=== PATIENT | male | born 1935 | race Asian ===

== ENCOUNTER 2022-01-19 04:00 | Emergency (ER) | payer MEDICARE, MEDICAID ==
[~2022-01-19] VITALS: Ht 172.7 cm; Wt 63.0 kg
--- NOTE | 2022-01-19 04:00 | NUR ---
PT BENY ALS. TAKEN TO BED 8
[2022-01-19 04:03] VITALS: BP 130/73
--- NOTE | 2022-01-19 04:03 | NUR ---
86 Y/O [place] [facility] [place]. PT HAD BEEN SATURATING AT 96-97% AND DROPPED TO 92 %. PT WAS DISCHARGED FROM [facility] YESTERDAY WITH DX OF PNEUMONIA. PT WITH T-TUBE AND WAS SUCTIONED, VENUE ATTENDANT, OF BLOODY SPUTUM. PT NOW WITH GURGLING RESPIRATIONS. PMH : STAGE III KIDNEY DISEASE, SPINAL STENOSIS, HTN
--- NOTE | 2022-01-19 04:03 | NUR ---
Dr. Dangelo examining patient.
--- NOTE | 2022-01-19 04:05 | NUR ---
Respiratory Therapist at bedside for respiratory intervention
[2022-01-19] MEDS ORDERED: NACL 0.9% 1,000 ML IV ONE ×2 (04:15→07:30)
--- NOTE | 2022-01-19 04:15 | NUR ---
X-Ray at bedside.
[2022-01-19] MEDS ORDERED: ARGI4.5P3 PO (04:26)
[2022-01-19] MEDS ORDERED: LORA10TA19 PO (04:26)
[2022-01-19] MEDS ORDERED: METO25TA PO (04:26)
[2022-01-19] MEDS ORDERED: INSU100S5 (04:26)
[2022-01-19] MEDS ORDERED: DOCU250S72 PO (04:26)
[2022-01-19] MEDS ORDERED: BANA1POW PO (04:26)
[2022-01-19] MEDS ORDERED: AZIT250T4 PO (04:26)
[2022-01-19] MEDS ORDERED: INSU100S22 SUBQ (04:26)
[2022-01-19] MEDS ORDERED: FERR-212 PO (04:26)
[2022-01-19] MEDS ORDERED: ACET-5629 PO (04:26)
--- NOTE | 2022-01-19 05:38 | NUR ---
LOLA AND LABS TAKEN TO LAB. Addendum: 01/19/22 at 0539 by ZOEY LOLA AND LABS TAKEN TO LABManav SILVA FROM LAB STATED TO LEAVE IT THERE.
--- NOTE | 2022-01-19 05:40 | NUR ---
RT AT BEDSIDE.
[2022-01-19] MEDS ORDERED: fentaNYL citrate 0.05 MG/ML VIAL IVP ONE ×2 (05:50→08:00)
[2022-01-19 06:00] LABS: BASOPHILS % (AUTO) 0.3 % (0.0-2.0); EOSINOPHILS # (AUTO) 0.3 K/uL (0-0.4); EOSINOPHILS % (AUTO) 2.4 % (0.0-4.0); HEMATOCRIT 28.7 % (36-52); HEMOGLOBIN 9.1 g/dL (12.0-18.0); LYMPHOCYTES # (AUTO) 1.3 K/uL (2.0-11.5); LYMPHOCYTES % (AUTO) 10.1 % (20.5-51.1); MEAN CORPUSCULAR HEMOGLOBIN 27 pg (27-31); MEAN CORPUSCULAR HGB CONC 32 g/dL (33-37); MEAN CORPUSCULAR VOLUME 86.9 fL (80-94); MONOCYTES # (AUTO) 1.2 K/uL (0.8-1.0); MONOCYTES % (AUTO) 9.6 % (1.7-9.3); NEUTROPHILS # (AUTO) 9.7 K/uL (1.8-7.7); NEUTROPHILS % (AUTO) 77.6 % (42.2-75.2); PLATELET COUNT (AUTO) 408 K/uL (140-450); RED BLOOD CELL COUNT(AUTO) 3.31 MIL/uL (4.20-6.10); RED CELL DISTRIBUTION WIDTH 18.5 % (11.6-13.7); WHITE BLOOD COUNT (AUTO) 12.5 K/uL (4.8-10.8)
[2022-01-19] MEDS ORDERED: VANCOMYCIN 1,000 MG in DEXTROSE 5% 250 ML IV ONE (06:10)
[2022-01-19] MEDS ORDERED: PIPERACILLIN/TAZOBACTAM 3.375 GM in DEXTROSE 5% 50 ML IV ONE (06:10)
--- NOTE | 2022-01-19 06:13 | NUR ---
FAY EMPTIED 100 ML. CLAMPED TO GET CLEAN URINE SAMPLE
[2022-01-19 06:18] LABS: ALBUMIN 1.8 g/dL (3.4-5.0); ASPARTATE AMINOTRANSFERASE 39 U/L (15-37); CARBON DIOXIDE 31.9 mmol/L (21-32); CHLORIDE 99 mmol/L (98-107); CREATININE 0.8 mg/dL (0.6-1.3); GLUCOSE 261 mg/dL (74-106); LIPASE 413 U/L (73-393); POTASSIUM 4.9 mmol/L (3.5-5.1); SODIUM SERUM 136 mmol/L (136-145); TOTAL BILIRUBIN 0.3 mg/dL (0.0-1.0); UREA NITROGEN, BLOOD 42 mg/dL (7-18)
[2022-01-19] MEDS ORDERED: PIPERACILLIN/TAZOBACTAM 3.375 GM VIAL IV ONE (06:19)
[2022-01-19] MEDS ORDERED: VANCOMYCIN 1,000 MG VIAL ONE (06:20)
--- NOTE | 2022-01-19 06:28 | NUR ---
PATIENT REFUSED ABG AT THIS TIME. REFUSED SUCTIONING. PATIENT COMBATIVE AND PULLING ON SUCTIONING CATHETER WHEN ATTEMPTING TO SUCTION. RN AND PHYSICIAN AWARE. WILL CONTINUE TO MONITOR.
--- NOTE | 2022-01-19 06:30 | NUR ---
FAY NOT REPLACED . DUE TO NO FOLEYS AVAILABLE
--- NOTE | 2022-01-19 06:38 | NUR ---
RT AT BEDSIDE
[2022-01-19 07:04] LABS: APPEARANCE,URINE HAZY (CLEAR); BILIRUBIN,URINE NEGATIVE (NEGATIVE); BLOOD, URINE 2+ (NEGATIVE); COLOR,URINE YELLOW (YELLOW); LEUKOCYTE ESTERASE ,URINE 1+ (NEGATIVE); NITRITE, URINE NEGATIVE (NEGATIVE); PH,URINE 5.5 (5.0-9.0); UGLUCOSE NEGATIVE (NEGATIVE)
[2022-01-19 07:19] LABS: CALCIUM OXALATE CRYSTALS,UR None Seen /HPF (None Seen); OTHER CRYSTALS,URINE None Seen /HPF (None Seen); TRICHOMONAS,URINE None Seen /HPF (None Seen); TRIPLE PHOSPHATE CRYSTAL,UR None Seen /HPF (None Seen); URIC ACID CRYSTALS,URINE None Seen /HPF (None Seen); WBC,URINE 16-25 (MOD) /HPF (0-5); YEAST,URINE Few /HPF (None Seen)
[2022-01-19 07:21] LABS: COARSE GRANULAR CASTS,URINE None Seen /LPF (None Seen); FINE GRANULAR CASTS,URINE 0-10 /LPF (None Seen); HYALINE CASTS, URINE None Seen /LPF (None Seen); OTHER CASTS, URINE None Seen /LPF (None Seen); RED BLOOD CELL CASTS,URINE None Seen /LPF (None Seen); URINE AMORPHOUS URATE 1+ /HPF (None Seen); WAXY CASTS,URINE None Seen /LPF (None Seen)
--- NOTE | 2022-01-19 07:53 | NUR ---
rt at bedside. pt not tolerating suction, oxygen saturation between 70%-88%. pt not allowing us to suction his mouth, no secretions with suction through trach. audible garling in mouth, pt tightly closing teeth and moving head, unable to suction at this time.
--- NOTE | 2022-01-19 10:06 | NUR ---
[facility] er transfer called. report given to karin clancy at this time. transportation operations manager called states they are on their way to [facility] pt.
--- NOTE | 2022-01-19 11:06 | NUR ---
transfer at bedside, art rn received report on pt. requesting rt assess pt before transfer to [place].
--- NOTE | 2022-01-19 11:07 | NUR ---
Patient to be transferred to [facility]. Is being transferred due to severe sepsis, pneumonia. Receiving facility has accepting physician and available space. ER physician has signed transfer form. Patient or responsible green party has agreed to transfer and signed form. Patient belongings inventoried and will be sent with patient. Copy of nursing notes, lab reports, EKG, Physicians Orders and X-rays to be sent with patient. Report called to karin clancy at receiving facility. [facility] has been called for transfer. ETA is 1030.
[2022-01-19 11:08] VITALS: BP 116/55
--- NOTE | 2022-01-19 11:13 | NUR ---
art rn states he is unable to transfer pt due to lack of rt for transport, states they will have to come back with rt to transfer pt.
--- NOTE | 2022-01-19 12:39 | NUR ---
transport here with rn and rt
== END 2022-01-19 12:40 | disposition short-term general hospital (02) ==
LOC: MED 04:00
DX: A41.9 Sepsis, unspecified organism (principal); Z20.822 Contact with and (suspected) exposure to COVID-19; J95.851 Ventilator associated pneumonia; J96.01 Acute respiratory failure with hypoxia; E43 Unspecified severe protein-calorie malnutrition; Z79.2 Long term (current) use of antibiotics; Z79.899 Other long term (current) drug therapy
CPT/HCPCS: 36415; 71045; 80053; 81001; 83605; 83690; 83880; 84484; 85025; 87040; 87086; 87426; 93005; 96361; 96365; 96366; 96368; 96375; 99291; J2543; J3010; J3370; J7030; Q0092; 99285

== ENCOUNTER 2022-03-01 23:55 | Inpatient (IN) | payer MEDICARE, MEDICAID ==
[~2022-03-01] VITALS: Ht 175.3 cm; Wt 81.6 kg
[~2022-03-01 23:55] MED LIST: ACET-5629 PO; ARGI4.5P3 PO; AZIT250T4 PO; BANA1POW PO; DOCU250S72 PO; FERR-212 PO; INSU100S22 SUBQ; INSU100S5; LORA10TA19 PO; METO25TA PO
[2022-03-01 23:57] VITALS: BP 85/43
--- NOTE | 2022-03-01 23:57 | NUR ---
PT BIBA ALS. TAKEN TO BED 10. RT AT BEDSIDE
[2022-03-02] VITALS (8 sets, daily range): BP systolic 80–131; BP diastolic 35–65
--- NOTE | 2022-03-02 | NUR ---
BIBA FROM [facility] WITH C/O OF ABNORMAL LAB VALUES X 1 DAY, HGB 5.9, HCT 19.4; PT NONVERBAL; TRACH; PICC IN RUIZ; GTUBE; PT SACRAL REGION & R HEEL; CAME IN WITH FAY; PER [facility]; PATIENT POSITIONED FOR COMFORT; HOB ELEVATED; BEDRAILS UP X2; BED DOWN. ER MD MADE AWARE OF PT STATUS. MED HX: HTN, CHRONIC RESPIRATORY FAILURE, DM2, HYPERLIPIDEMIA, GERD, AORTIC ANEURYSM, CKD. NKDA
--- NOTE | 2022-03-02 00:01 | NUR ---
Dr. Fulton examining patient.
--- NOTE | 2022-03-02 00:35 | NUR ---
PALACED PT ON COOL AEROSOL SETUP 12 LPM, 60% FIO2, CURRENTLY SATING 97%, NO SIGNS OF RESPIRATORY DISTRESS NOTED AT THIS TIME, ANTERIOR AUSCULTATION REVEALED COARSE CRACKLES THROUGHOUT ALL LUNG LOOMIS, DEEP TRACHEAL SUCTION FOR MODERATE PALE/YELLOW THICK SECRETIONS. WILL CONTINUE TO MOITOR.
[2022-03-02 00:58] LABS: ALBUMIN 1.4 g/dL (3.4-5.0); ANION GAP 11.1 (8-16); ASPARTATE AMINOTRANSFERASE 29 U/L (15-37); CARBON DIOXIDE 29.9 mmol/L (21-32); CHLORIDE 111 mmol/L (98-107); CREATININE 1.5 mg/dL (0.6-1.3); GLUCOSE 242 mg/dL (74-106); SODIUM SERUM 147 mmol/L (136-145); TOTAL BILIRUBIN 0.5 mg/dL (0.0-1.0); UREA NITROGEN, BLOOD 54 mg/dL (7-18)
[2022-03-02 01:25] LABS: BASOPHILS # (AUTO) 0.2 K/uL (0.00-0.22); BASOPHILS % (AUTO) 1.9 % (0.0-2.0); EOSINOPHILS # (AUTO) 0.4 K/uL (0-0.4); EOSINOPHILS % (AUTO) 3.2 % (0.0-4.0); LYMPHOCYTES # (AUTO) 2.6 K/uL (2.0-11.5); LYMPHOCYTES % (AUTO) 19.7 % (20.5-51.1); MEAN CORPUSCULAR HEMOGLOBIN 26 pg (27-31); MEAN CORPUSCULAR HGB CONC 30 g/dL (33-37); MEAN CORPUSCULAR VOLUME 87.8 fL (80-94); MONOCYTES # (AUTO) 0.8 K/uL (0.8-1.0); MONOCYTES % (AUTO) 6.4 % (1.7-9.3); NEUTROPHILS # (AUTO) 8.9 K/uL (1.8-7.7); NEUTROPHILS % (AUTO) 68.8 % (42.2-75.2); PLATELET COUNT (AUTO) 416 K/uL (140-450); RED BLOOD CELL COUNT(AUTO) 2.07 MIL/uL (4.20-6.10); RED CELL DISTRIBUTION WIDTH 19.8 % (11.6-13.7); WHITE BLOOD COUNT (AUTO) 12.9 K/uL (4.8-10.8)
[2022-03-02 01:34] LABS: HEMATOCRIT 18.2 % (36-52); HEMOGLOBIN 5.4 g/dL (12.0-18.0)
[2022-03-02] MEDS ORDERED: BACITRACIN OINT 500 UNITS/GM PKT TP ONE ×2 (01:34→01:35)
[2022-03-02] MEDS ORDERED: NACL 0.9% 1,000 ML IV ONE (01:35)
[2022-03-02] MEDS ORDERED: VANCOMYCIN 1GM/DEXT 5% PREMIX 200 ML IV ONE (01:45)
[2022-03-02] MEDS ORDERED: VANCOMYCIN PER PHARMACY MC PRN ×2 (01:45→12:25)
--- NOTE | 2022-03-02 01:48 | NUR ---
X-Ray at bedside.
[2022-03-02] MEDS ORDERED: ACETAMINOPHEN 650 MG/20.3 ML UDC PO ONE (02:05)
--- NOTE | 2022-03-02 02:10 | NUR ---
provided pericare for pt. pt had loose stool. diaper changed, sheets changed, and place lisa pads. pt tolerated well. safety measures are in place, pt placed on monitor, and will continue to monitor patient.
[2022-03-02] MEDS ORDERED: cefTRIAXone 1,000 MG VIAL ONE (02:14)
[2022-03-02 02:30] LABS: PROTHROMBIN TIME 11.5 secs (10.8-13.4)
[2022-03-02] MEDS ORDERED: ASPI-1822 GT (02:39)
[2022-03-02] MEDS ORDERED: LOV40I SUBQ (02:39)
[2022-03-02] MEDS ORDERED: MAGN400S60 GT (02:39)
[2022-03-02] MEDS ORDERED: LORA10TA19 GT (02:39)
[2022-03-02] MEDS ORDERED: SLIDE SUBQ (02:39)
[2022-03-02] MEDS ORDERED: DOCU-299 GT (02:39)
[2022-03-02] MEDS ORDERED: BISA-213 RC (02:39)
[2022-03-02] MEDS ORDERED: LORA-476 GT (02:39)
--- NOTE | 2022-03-02 02:46 | NUR ---
Benedict walton in [facility] - 03/02/22 at 0250 by [email or web address] PATIENT TAKEN TO CT
--- NOTE | 2022-03-02 02:58 | NUR ---
SPOKE TO PATIENTS SON DIANN. DIANN GAVE PERMISSION TO GIVE BLOOD TRANSFUSION
[2022-03-02] MEDS ORDERED: VANCOMYCIN 1,000 MG VIAL ONE (03:02)
[2022-03-02] MEDS ORDERED: SIMV-33 GT (03:06)
[2022-03-02] MEDS ORDERED: IPRA12.9 IH (03:06)
[2022-03-02] MEDS ORDERED: ALBU-118 INH (03:06)
[2022-03-02] MEDS ORDERED: ZINC220T3 GT (03:06)
[2022-03-02] MEDS ORDERED: CHOL200072 GT (03:06)
[2022-03-02] MEDS ORDERED: ACET-10509 GT (03:06)
[2022-03-02] MEDS ORDERED: FAMO-90 GT (03:06)
[2022-03-02] MEDS ORDERED: ALBU6.7H IH (03:06)
[2022-03-02] MEDS ORDERED: [UNRECOGNIZED DRUG - CODE] GT (03:10)
[2022-03-02] MEDS ORDERED: DIPH25TA53 GT (03:12)
[2022-03-02] MEDS ORDERED: POTASSIUM CHLORIDE 40 MEQ, LIDOCAINE MPF 1% 25 MG in NACL 0.9% 250 ML IV PRN (03:20)
[2022-03-02] MEDS: DEXT 5% / NACL 0.45% 1,000 ML IV SCH ×2 (03:20→15:34)
[2022-03-02] MEDS ORDERED: ONDANSETRON 4 MG/2 ML VIAL IM/IVP PRN (03:20)
[2022-03-02] MEDS ORDERED: SODIUM PHOS / POTASSIUM PHOS 1 PKT PDR PO PRN (03:20)
[2022-03-02] MEDS ORDERED: ONDANSETRON 4 MG/2 ML VIAL IVP PRN (03:20)
[2022-03-02] MEDS ORDERED: MAG SULF 2000 MG/WATER PREMIX 50 ML IV PRN (03:20)
[2022-03-02] MEDS ORDERED: DOCUSATE SODIUM 100 MG GELCAP PO PRN (03:20)
[2022-03-02] MEDS ORDERED: HYDROcodone/APAP 5/325 MG 1 TAB TAB PO PRN (03:20)
--- NOTE | 2022-03-02 03:24 | NUR ---
PT TAKEN TO CT
[2022-03-02 03:35] LABS: MAGNESIUM 2.4 mg/dL (1.8-2.4); PHOSPHORUS 3.1 mg/dL (2.5-4.9)
--- NOTE | 2022-03-02 03:35 | NUR ---
PT RETURN FROM CT
--- NOTE | 2022-03-02 04:12 | NUR ---
Patient will be admitted to care of DR WARD. Admited to TELEMETRY. Will go to room 108B. Belongings list completed. Report to SEAN HYDE.
--- NOTE | 2022-03-02 07:10 | NUR ---
RECEIVED REPORT FROM RIBBON WEAVER NURSE FOR CONTINUITY OF CARE. PT ASLEEP IN BED. ON 12L TRACH TO TPIECE/TBAR SATING AT 100% BREATHING SYMMETRICAL. FLACC O. WITH PICC LINE 1 LUMEN ON RUIZ RUNNING D51/2NS AT 75CC/HR. FAY CATHETER INTACT AND PATENT DRAINING YELLOW URINE. NOTED WITH PEG TUBE ON RUQ ABDOMEN. PER REPORT PT HAD FEVER AROUND 5AM AND HAS EPISODE OF TRYING TO PULL OUT T PIECE. ALL SAFETY MEASURES IN PLACE.
[2022-03-02] MEDS: ACETAMINOPHEN 325 MG TAB PO PRN (07:57)
--- NOTE | 2022-03-02 07:57 | NUR ---
PT'S HEMOGLOBIN LEVEL IS 5.4, CHECKED PT'S TEMP AXILLARY NOTED 102.6, PRN TYLENOL GIVEN VIA PEG TUBE. ICE PACKS ALSO APPLIED. UNABLE TO TRANSFUSE BLOOD DUE TO ELEVATED TEMP. WILL CONTINUE TO MONITOR.
--- NOTE | 2022-03-02 08:12 | NUR ---
PATIENT HAS BEEN SCREENED AND CATEGORIZED HIGH NUTRITION RISK. PATIENT WILL BE SEEN WITHIN 1-2 DAYS OF ADMISSION. RECEIVED CONSULT FOR JIMY Marinelli OR LEO BOYER RD
[2022-03-02] MEDS: PANTOPRAZOLE 40 MG INJ VIAL IVP SCH ×2 (08:16→21:43)
[2022-03-02] MEDS: MULTIVITAMIN 1 TAB GT SCH (08:17)
[2022-03-02] MEDS: METOPROLOL 25 MG TAB PO SCH ×2 (08:17→21:00)
--- NOTE | 2022-03-02 09:03 | NUR ---
RE-CHECKED PT'S TEMP WENT DOWN TO 101.3 AXILLARY. STILL UNABLE TO TRANSFUSE BLOOD AT THIS TIME DUE TO FEVER. LEFT MESSAGE TO DR WARD
--- NOTE | 2022-03-02 09:23 | NUR ---
RECEIVED ORDER FROM DR WARD TO GIVE TORADOL 30MG IV X1.
[2022-03-02] MEDS ORDERED: KETOROLAC 30 MG/ML VIAL IVP SCH (10:00)
[2022-03-02] MEDS ORDERED: DEXTROSE 50% 50 ML SYR IVP PRN (10:45)
[2022-03-02 10:48] LABS: APPEARANCE,URINE CLEAR (CLEAR); BILIRUBIN,URINE NEGATIVE (NEGATIVE); BLOOD, URINE 1+ (NEGATIVE); COLOR,URINE YELLOW (YELLOW); LEUKOCYTE ESTERASE ,URINE TRACE (NEGATIVE); NITRITE, URINE NEGATIVE (NEGATIVE); UGLUCOSE NEGATIVE (NEGATIVE)
--- NOTE | 2022-03-02 11:10 | NUR ---
RE-ASSESSED PT'S TEMP, WENT DOWN TO 99.7 COOLING MEASURES STILL IN PLACE
[2022-03-02 11:12] LABS: RBC,URINE 0-5 /HPF (0-5)
[2022-03-02 11:13] LABS: TRICHOMONAS,URINE None Seen /HPF (None Seen); YEAST,URINE None Seen /HPF (None Seen)
[2022-03-02 11:14] LABS: CALCIUM OXALATE CRYSTALS,UR None Seen /HPF (None Seen); COARSE GRANULAR CASTS,URINE None Seen /LPF (None Seen); FINE GRANULAR CASTS,URINE None Seen /LPF (None Seen); HYALINE CASTS, URINE None Seen /LPF (None Seen); OTHER CASTS, URINE None Seen /LPF (None Seen); OTHER CRYSTALS,URINE None Seen /HPF (None Seen); RED BLOOD CELL CASTS,URINE None Seen /LPF (None Seen); TRIPLE PHOSPHATE CRYSTAL,UR None Seen /HPF (None Seen); URIC ACID CRYSTALS,URINE None Seen /HPF (None Seen); URINE AMORPHOUS URATE None Seen /HPF (None Seen); WAXY CASTS,URINE None Seen /LPF (None Seen)
--- NOTE | 2022-03-02 11:50 | NUR ---
PT'S TEMP WENT DOWN TO 99.0 AXILLARY. PT'S BP 88/35. DR WARD AT STATION AND MADE AWARE. WILL TRANSFUSE BLOOD.
[2022-03-02] MEDS: BLOOD GLUCOSE MONITORING 1 DEV DEV FS SCH ×3 (11:51→21:00)
[2022-03-02] MEDS ORDERED: NACL 0.9% 1,000 ML IV SCH (12:20)
--- NOTE | 2022-03-02 12:45 | NUR ---
1 PRBC OBTAINED FROM LAB, PT'S PRE-TRANSFUSION VSBP90/40 PR84 RR22 TEMP98.8 O2 SAT 100%
--- NOTE | 2022-03-02 13:00 | NUR ---
STARTED PT ON BLOOD TRANSFUSION. WILL MONITOR. Addendum: 03/02/22 at 1302 by Audrey Canela RN VERIFIED WITH BRITTNEY RN Addendum: 03/02/22 at 1333 by Audrey Canela RN STARTED BLOOD TRANSFUSION RATE AT 75CC/HR
[2022-03-02] MEDS: INSULIN LISPRO SLIDING SCALE 100 UNITS/ML VIAL SUBQ PRN ×2 (13:25→18:02)
--- NOTE | 2022-03-02 13:32 | NUR ---
NO ADVERSE REACTION NOTED AT THIS TIME FROM BLOOD TRANSFUSION. INCREASED RATE TO 100CC/HR. WILL CONTINUE TO MONITOR.
--- NOTE | 2022-03-02 16:05 | NUR ---
1 PRBC TRANSFUSED AND DONE. POST TRANSFUSION VS BP90/40 PR80 RR24 TEMP97.9 O2 SAT 97% FLACC O. WILL TRANSFUSE 2ND BAG
--- NOTE | 2022-03-02 16:15 | NUR ---
DC PLANNING: THE PATIENT ADMITTED FROM [facility] [place] AND LOW HGB. THE PATIENT IS TRACH/VENT/PEG AND IS NON-VERBAL. HGB 5 IN THE ED, LACTIC ACID 3.3, CXR SHOWED PULMONARY EDEMA. BLOOD, URINE AND SACRAL WOUND CULTURES COLLECTED, PATIENT STARTED ON VANCO AND ZOSYN. LACTIC ACID TODAY 4.8, 2 UNITS PRBC'S ORDERED FOR TRANSFUSION. 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 PATIENT TO RETURN TO [facility] WHEN CLINICALLY STABLE, CM WILL FOLLOW. Addendum: 03/03/22 at 1131 by Jessy Pena CM DC PLANNING: PATIENT TRANSFERRED TO ICU LAST NIGHT SECONDARY TO HYPOTENSION. GIVEN 2 UNITS PRBCS AND NS BOLUS, B/P AT 80/48, STARTED ON LEVOPHED GTT. GI CONSULT WITH DR GRACE, STATES NO EVIDENCE OF GI BLEED AND NO NEED FOR EGD OR COLONOSCOPY. PATIENT IS TRACH TO T-BAR, 10 L OF O2 AT 40% FIO2. LATEST B/P 103/51, PATIENT REMAINS ON VANCO AND ZOSYN, H&H 9.5 AND 29.7. CM WILL SPEAK WITH JAUN REGARDING TRANSFER TO A [facility] FAC[facility]. CM WILL FOLLOW. Addendum: 03/03/22 at 1530 by Jessy Pena CM DC PLANNING: LISSET SPOKE WITH RICHARD AT [facility], STATES SHE IS CALLING DAILY FOR CLINICAL UPDATE. LISSET ENDORSED ORDER FOR PATIENT TO TRANSFER WHEN CLINICALLY STABLE, ALSO LET RICHARD KNOW THAT NURSING AND THE ENDODONTICS DENTIST WILL ASSIST WITH TRANSFER IF [facility] THINKS PATIENT IS STABLE AND HAS A BED. RICHARD STATES THAT [facility] WILL CALL THE ICU DAILY FOR A CLINICAL UPDATE BUT FEEL THAT THE PATIENTS B/P IS TOO LABILE AT THIS TIME TO TRANSFER HIM. LISSET WILL FOLLOW. Addendum: 03/09/22 at 1140 by Jessy Pena CM DC PLANNING: THE PATIENT TRANSFERRED TO TELEMETRY ONCE LEVOPHED GTT WAS DC'D. ORDER TO DC PATIENT BACK TO [facility] [place], LISSET SPOKE WITH THE [facility] LISSET POMPA ([phone]), CLINICAL PACKET FAXED TO HER AT [phone]. ALETHA STATES THAT REFERRAL WILL NEED TO BE REVIEWED AND ONCE THIS HAPPENS WILL CALL CM BACK TO [facility] TRANSPORT. CLINICAL PACKET ALSO FAXED TO [facility], CM WILL F/U WITH ROOM ASSIGNMENT AND MD TO FOLLOW. LISSET SPOKE WITH THE PATIENTS DAUGHTER DUSTIN MULLEN BY PHONE TO LET HER KNOW ABOUT THE DISCHARGE PLANNING TO [facility], DUSTIN WILL BE HERE TO VISIT HER FATHER TODAY. LISSET WILL FOLLOW. Addendum: 03/09/22 at 1410 by Jessy Pena CM DC PLANNING: PATIENT ACCEPTED TO ROOM 2A, DR WANG TO FOLLOW. LISSET SPOKE AGAIN WITH ALETHA AT [facility], SHE WILL FOLLOW UP WITH HER COUNSELOR CAMP REGARDING AUTHORIZATION. [facility] WILL ALSO SET UP THE AMBULANCE TRANSPORT FOR PATIENT BACK TO [facility] [place]. LISSET WILL FOLLOW. Addendum: 03/09/22 at 1520 by Jessy Pena CM DC PLANNING: PATIENT PENDING TRANSPORT SET UP, LISSET REQUESTED 1700 OIL DELIVERER TIME. LISSET WILL FOLLOW.
--- NOTE | 2022-03-02 16:45 | NUR ---
2ND PRBC TRANSFUSING. PRE TRANSFUSION LRXM735/52 PR83 RR22 TEMP97.6. VERIFIED WITH ANDRIY, WILL MONITOR.
[2022-03-02] MEDS: PIPERACILLIN/TAZOBACTAM 2.25 GM in DEXTROSE 5% 50 ML IV SCH (18:00)
--- NOTE | 2022-03-02 19:01 | NUR ---
PT WAS SEEN BY DR GRIFFIN (GI) ORDER TO RESUME GTUBE FEEDING AT 50ML/HR. LEFT MESSAGE TO DR WARD.
--- NOTE | 2022-03-02 19:34 | NUR ---
RECEIVED ORDER FROM DR WARD REGARDING TUBE FEEDING, ALSO DR WARD MADE AWARE OF 200CC OUTPUT ON FAY CATHETER. ENDORSED PT TO FINANCIAL AIDS OFFICER NURSE. 2ND BAD PRBC STILL INFUSING
--- NOTE | 2022-03-02 19:45 | NUR ---
RECEIVED BEDSIDE REPORT FROM DAY SHIFT NURSE, PATIENT IS ASLEEP AROUSABLE BY TOUCH. RESPIRATION EVEN UNLABORED ON TRACH TO T-PIECE SATING AT 95%. SKIN IS WARM AND DRY. LEFT UPPER ARM PICC LINE NOTED INFUSING BLOOD RUNNING AT 100ML/HR. BLOOD PRESSURES IS TRENDING DOWN TO LOW 90'S SBP WITH MAP OF LOW 60'S. WILL NOTIFY MD. SKIN IS WARM AND DRY. FAY CATHETER DRAINING YELLOW URINE. PLAN OF CARE UPDATED. ALL SAFETY MEASURES IN PLACE. BED IS AT LOW POSITION. CALL LIGHT WITHIN REACH. WILL CONTINUE TO MONITOR.
--- NOTE | 2022-03-02 20:00 | NUR ---
PATIENT BLOOD PRESSURE 89/44 (59) HR 73 SPO2 94% RR20 WILL TRANSFER PATIENT TO ICU.
--- NOTE | 2022-03-02 20:20 | NUR ---
GAVE REPORT TO ROSANNA RN FOR CONTINUITY OF CARE
--- NOTE | 2022-03-02 20:20 | NUR ---
TRANS IN FROM TELEMETRY PER BED DUE TO HYPOTENSION; ADMITTED PATIENT IN ICU 5, HOOKED TO SOW FARM BARN TECHNICIAN; SCOPE SHOWS ON SINUS RHYTHMHR 69/MIN; NO ARRHYTHMIAS SEEN. ON TRACH TO T- PIECE AT 60% 02 WITH COOL AEROSOL. ON 2ND UNIT OF PRBC GOING THRU PICC LINE TO LEFT UPPER ARM
--- NOTE | 2022-03-02 20:23 | NUR ---
TRANSFERRED PATIENT TO ICU DUE TO LOW BLOOD PRESSURE WITH MAP OF 58.
--- NOTE | 2022-03-02 20:25 | NUR ---
V/S CHECKED BP IS LOW 76/51; NORMAL SALINE BOLUS 300 ML GIVEN.
--- NOTE | 2022-03-02 20:30 | NUR ---
2ND UNIT OF PRBC CONSUMED AND TERMINATED.
[2022-03-02] MEDS: NOREPINEPHRINE 8 MG in DEXTROSE 5% 250 ML IV PRN (20:45)
--- NOTE | 2022-03-02 20:45 | NUR ---
BP STILL LOW 80/45 EVEN AFTER THE SALINE BOLUS GIVEN; PAGED DR. GARCIA TO REFER THE PATIENT.
--- NOTE | 2022-03-02 20:55 | NUR ---
DR. GARCIA RETURNED MY PAGED AND HE ORDERED TO START PATIENT ON LEVOPHED PER PROTOCOL AND TO PUT PATIENT ON A VENTILATOR; RT NOTIFIED IMMEDIATELY.
[2022-03-02] MEDS ORDERED: NOREPINEPHRINE 4 MG/4 ML VIAL IV ONE (20:56)
[2022-03-02] MEDS ORDERED: NACL 0.9% 500 ML IV ONE (21:05)
--- NOTE | 2022-03-02 21:15 | NUR ---
PAGED PT'S PULMO. DR. GARCIA CALLED BACK. DR. GARCIA WAS INFORMED THAT PT HAVE UNCUFFED TRACH. PT IS ON COOL AEROSOL 60% @ 12L WITH SPO2 100% AND NO WORK OF BREATHING. PER DR. GARCIA MONITOR PT AND CHANGE TO CUFFED TRACH AND PLACE PT ON VENTILATOR WHEN THERE IS INCREASE WORK OF BREATHING AND DESATURATION. RN NOTIFIED. WILL CONTINUE TO MONITOR PT.
[2022-03-02] MEDS ORDERED: PIPERACILLIN/TAZOBACTAM 2.25 GM VIAL IV ONE (21:20)
[2022-03-02] MEDS: SIMVASTATIN 40 MG TAB GT SCH (21:43)
--- NOTE | 2022-03-02 21:44 | NUR ---
SCHEDULED MEDS ADMINISTERED. METOPROLOL HELD FOR LOW BP AND INSULIN COVERAGE FOR 194 NOT GIVEN DUE TO PT NPO STATUS. D5 1/2 NS STARTED. WILL CONTINUE TO MONITOR.
[2022-03-02 22:38] LABS: BASOPHILS % (AUTO) 0.5 % (0.0-2.0); EOSINOPHILS # (AUTO) 0.7 K/uL (0-0.4); EOSINOPHILS % (AUTO) 6.6 % (0.0-4.0); HEMATOCRIT 25.8 % (36-52); HEMOGLOBIN 8.3 g/dL (12.0-18.0); LYMPHOCYTES # (AUTO) 1.5 K/uL (2.0-11.5); LYMPHOCYTES % (AUTO) 14.1 % (20.5-51.1); MEAN CORPUSCULAR HEMOGLOBIN 27 pg (27-31); MEAN CORPUSCULAR HGB CONC 32 g/dL (33-37); MEAN CORPUSCULAR VOLUME 84.9 fL (80-94); MONOCYTES # (AUTO) 0.8 K/uL (0.8-1.0); MONOCYTES % (AUTO) 7.7 % (1.7-9.3); NEUTROPHILS # (AUTO) 7.4 K/uL (1.8-7.7); NEUTROPHILS % (AUTO) 71.1 % (42.2-75.2); PLATELET COUNT (AUTO) 387 K/uL (140-450); RED BLOOD CELL COUNT(AUTO) 3.04 MIL/uL (4.20-6.10); RED CELL DISTRIBUTION WIDTH 17.5 % (11.6-13.7); WHITE BLOOD COUNT (AUTO) 10.3 K/uL (4.8-10.8)
[2022-03-02 22:53] LABS: ANION GAP 8.3 (8-16); CARBON DIOXIDE 29.4 mmol/L (21-32); CHLORIDE 112 mmol/L (98-107); CREATININE 1.5 mg/dL (0.6-1.3); GLUCOSE 243 mg/dL (74-106); POTASSIUM 4.7 mmol/L (3.5-5.1); SODIUM SERUM 145 mmol/L (136-145); UREA NITROGEN, BLOOD 56 mg/dL (7-18)
[2022-03-03] VITALS (24 sets, daily range): BP systolic 95–126; BP diastolic 43–70
--- NOTE | 2022-03-03 00:27 | NUR ---
PT OBSERVED. CHEST RISE AND FALL PRESENT. PICC LINE PATENT, INTACT AND INFUSING WELL. VSS. PT TURNED AND REPOSITIONED. WILL CONTINUE TO MONITOR.
[2022-03-03] MEDS ORDERED: PIPERACILLIN/TAZOBACTAM 2.25 GM VIAL IV ONE ×2 (01:32→07:44)
[2022-03-03] MEDS: DEXT 5% / NACL 0.45% 1,000 ML IV SCH ×3 (01:34→21:34)
--- NOTE | 2022-03-03 03:35 | NUR ---
AM CARE, GRIFFIN CARE, CATHETER CARE, AND ORAL CARE PROVIDED. DRESSING TO WOUNDS CHANGED. TOLERATED WELL. WILL CONTINUE TO MONITOR.
[2022-03-03] MEDS ORDERED: Z-GUARD PASTE TP ONE (03:53)
[2022-03-03] MEDS: VANCOMYCIN 1,000 MG in DEXTROSE 5% 250 ML IV SCH (05:00)
[2022-03-03] MEDS ORDERED: VANCOMYCIN 1,000 MG VIAL ONE (05:47)
[2022-03-03 05:51] LABS: BASOPHILS % (AUTO) 0.3 % (0.0-2.0); EOSINOPHILS # (AUTO) 0.6 K/uL (0-0.4); EOSINOPHILS % (AUTO) 6.1 % (0.0-4.0); HEMATOCRIT 29.7 % (36-52); HEMOGLOBIN 9.5 g/dL (12.0-18.0); LYMPHOCYTES # (AUTO) 1.3 K/uL (2.0-11.5); LYMPHOCYTES % (AUTO) 14.2 % (20.5-51.1); MEAN CORPUSCULAR HEMOGLOBIN 28 pg (27-31); MEAN CORPUSCULAR HGB CONC 32 g/dL (33-37); MEAN CORPUSCULAR VOLUME 85.6 fL (80-94); MONOCYTES # (AUTO) 0.7 K/uL (0.8-1.0); MONOCYTES % (AUTO) 7.1 % (1.7-9.3); NEUTROPHILS # (AUTO) 6.9 K/uL (1.8-7.7); NEUTROPHILS % (AUTO) 72.3 % (42.2-75.2); PLATELET COUNT (AUTO) 422 K/uL (140-450); RED BLOOD CELL COUNT(AUTO) 3.47 MIL/uL (4.20-6.10); RED CELL DISTRIBUTION WIDTH 18.4 % (11.6-13.7); WHITE BLOOD COUNT (AUTO) 9.5 K/uL (4.8-10.8)
[2022-03-03 06:35] LABS: CHLORIDE 111 mmol/L (98-107); CREATININE 1.6 mg/dL (0.6-1.3); GLUCOSE 310 mg/dL (74-106); POTASSIUM 4.5 mmol/L (3.5-5.1); SODIUM SERUM 147 mmol/L (136-145); UREA NITROGEN, BLOOD 53 mg/dL (7-18)
[2022-03-03 07:01] LABS: ANION GAP 12.2 (8-16); CARBON DIOXIDE 28.3 mmol/L (21-32)
--- NOTE | 2022-03-03 07:27 | NUR ---
GAVE REPORT AT BEDSIDE TO DAYSHIFT RN FOR CONTINUITY OF CARE
--- NOTE | 2022-03-03 07:30 | NUR ---
RECEIVED BEDSIDE REPORT FROM HARVESTING MANAGER NURSE FOR CONTINUITY OF CARE. PT IS AOX1, REACTS TO LIGHT TOUCH AND PAIN. RESPIRATIONS EVEN AND LABORED. ON T-BAR 12L 60% FIO2 WITH O2 SATURATION AT 99%. SKIN IS WARM, DRY, AND NON-INTACT. MULTIPLE OPENS WOUNDS ON SACRAL AREA. OPEN WOUND ON RIGHT WRIST AND HEEL. HAS RUIZ PICC LINE INFUSING FLUIDS WELL. INTACT AND PATENT. ON LEVO DRIP @ 5MCG. FAY CATH IN PLACE DRAINING YELLOW URINE. FLACC 0. PLAN OF CARE DISCUSSED. SAFETY PRECAUTIONS IN PLACE. CALL LIGHT WITHIN REACH. WILL CONTINUE TO MONITOR.
[2022-03-03] MEDS: PIPERACILLIN/TAZOBACTAM 2.25 GM in DEXTROSE 5% 50 ML IV SCH ×5 (07:53→18:05)
--- NOTE | 2022-03-03 08:05 | NUR ---
RECEIVED ON A COOL AEROSOL AT 60%/12 LPM TO INLINE SUCTION CATHETER/PORTEX CFS #7 TRACHEOSTOMY TUBE GOOD CHEST RISE DEEP TRACHEAL SUCTION FOR LARGE SEMI THICK YELLOW/GREEN SECRETIONS AIRWAY PATENT TITRATED FIO2 TO 40%/10 LPM BROOMMAKING SUPERVISOR TO MONITOR
[2022-03-03] MEDS: MULTIVITAMIN 1 TAB GT SCH (08:29)
[2022-03-03] MEDS: METOPROLOL 25 MG TAB PO SCH ×2 (08:29→21:00)
[2022-03-03] MEDS: BLOOD GLUCOSE MONITORING 1 DEV DEV FS SCH ×4 (08:33→20:30)
[2022-03-03] MEDS: INSULIN LISPRO SLIDING SCALE 100 UNITS/ML VIAL SUBQ PRN ×4 (08:38→20:25)
[2022-03-03] MEDS: PANTOPRAZOLE 40 MG INJ VIAL IVP SCH ×2 (08:44→20:37)
--- NOTE | 2022-03-03 09:10 | NUR ---
RT TITRATED PATIENT'S O2 LEVEL TO 10 L 40% FIO2. O2 SATURATION CURRENTLY AT 96%
--- NOTE | 2022-03-03 10:00 | NUR ---
WOUND CARE NURSE AT PATIENT'S BEDSIDE. ASSISTED IN CHANGING WOUND CARE DRESSING
--- NOTE | 2022-03-03 10:20 | NUR ---
COLLECTED OCCULT BLOOD SAMPLE.
[2022-03-03] MEDS ORDERED: NACL 0.9% 500 ML IV SCH (11:05)
--- NOTE | 2022-03-03 11:06 | NUR ---
03/03/22 RD INITIAL ASSESSMENT COMPLETED PLEASE REFER TO NUTRITION ASSESSMENT UNDER CARE ACTIVITY FOR ESTIMATED NUTRITIONAL NEEDS. 1. RECOMMEND NEPRO CARBSTEADY WITH A GOAL RATE OF 40 ML/HR -FWF: 150 ML Q6H OR PER MD -START AT 10 ML/HR AND INCREASE BY 10 ML Q4H TOLERATED 2. RECOMMEND ARTUR BID PER RD PROTOCOL -WITH ARTUR BID, PT WILL RECEIVE 89% OF ESTIMATED KCAL AND 100% OF ESTIMATED PROTEIN NEEDS 3. RD TO FOLLOW-UP 2-3 DAYS, HIGH RISK ELIAN BOYER RD
--- NOTE | 2022-03-03 12:27 | NUR ---
WOUND CARE EVALUATION NOTE: SKIN ASSESSMENT DONE WITH THIS 86 Y/O PT ADMITTED FROM [facility] [place] [facility] WITH INITIAL DX INCREASE AMS AND SEVERE LOW HGB. PAST MEDICAL HX INCLUDES CHRONIC RESP FAILURE TRACH DEPENDENT, DYSPHAGIA W/ G-TUBE, ANEMIA, DM2, HTN, SACRAL ULCER. ALL ABOVE INFORMATION OBTAINED FROM ADMISSION H&P. PT EYES OPEN WHEN TOUCHED BUT NO EYE CONTACT. SKIN IS WARM AND MOIST, BLE NO HAIR GROWTH, NO EDEMA. DORSAL PEDAL PULSES PRESENT AND NORMAL. CAPILLARY REFILLED < 2 SEC. X 10 TOES. INCONTINENT OF BOWEL X1 DURING ASSESSMENT. F/C PATENT WITH SMALL AMOUNT YELLOW COLOR URINE OUT PUT OBSERVED. PLAN OF CARE DISCUSSED WITH PRIMARY RN. POC DISCUSSED WITH DR. WARD, PER DR WARD, THAT HE REQUESTED DR. BAY FOR WOUND DEBRIDEMENT. INTEGUMENTARY: -ORAL MEMBRANE PALE, DRY AND INTACT, LIPS WITH DRY SCABBING SKIN, NO OPEN WOUNDS -TRACH SITE GRIFFIN STOMA SKIN DRY AND CLEAN. SKIN INTACT. - GT SITE GRIFFIN STOMA WITH SKIN INTACT. -RIGHT HAND SKIN TEAR 3X1.5X0.1CM WOUND BED 100% RED AND MOIST, NO ODOR, GRIFFIN-WOUND SKIN THIN AND EASILY TO TORN -INCONTINENT ASSOCIATE DERMATITIS (IAD) TO: B/L GROINS EXTENDED TO SCROTAL AND GRIFFIN-ANAL, PEELING SKIN WITH REDNESS - PRESSURE ULCER INJURY STAGE 3 TO SACRAL SYMMETRIC MULTIPLE FULL THICKNESS SKIN LOSS WITH LARGEST TO RIGHT SACRAL 4X3X0.1CM WOUND BED RED AND MOIST, ENTIRE SACRALCOCCYX GRIFFIN WOUND SKIN NON-BLANCHABLE WITH DENUDED SKIN 85A92V3.2CM, FURTHER DAMAGE INDICATED -PRESSURE ULCER INJURY STAGE 4, COCCYX INFECTED WOUND 1X4N5VN, UNDERMINING 9 OCLOCK DIRECTION 2CM WOUND BED 100% BROWN INFECTED SLOUGH TISSUE, MODERATED AMOUNT PURULENT DRAINAGE, MILD ODOR, GRIFFIN-WOUND SKIN DENUDED, NON-BLANCHABLE REDNESS. - SEVERE MOISTURE ASSOCIATED DERMATITIS TO RIGHT AND LEFT BUTTOCKS MULTIPLE EROSIONS WITH LARGEST 2X1CM SUPERFICIAL DEPTH, WOUND BED IS RED 100% GRANULATING TISSUE, MOIST NO ODOR, GRIFFIN WOUND SKIN MOIST, DENUDED FURTHER DAMAGE INDICATED. -RIGHT HEEL PRESSURE ULCER INJURY STAGE 4 WITH 1X3X0.3CM WOUND BED 100% RED GRANULATION TISSUE, MOIST, NO ODOR, GRIFFIN WOUND SKIN MOIST DENUDED WITH NON-BLANCHABLE REDNESS SKIN , FURTHER DAMAGE INDICATED RECOMMENDATIONS: -PENDING SURGEON DEBRIDEMENT COCCYX WOUND -ORAL CARE Q SHIFT -APPLY Z GUARD TO B/L GROINS EXTENDED TO SCROTAL, RIGHT AND LEFT BUTTOCKS AND GRIFFIN-ANAL BID AND PRN IF SOILING - CLEANSE RIGHT HAND SKIN TEAR, SACROCOCCYX AND RIGHT HEEL WOUNDS WITH WOUND CLEANSING SOLUTION AND APPLY THERAHONEY GEL COVER WITH DRY DRESSING QD AND PRN IF SOILING -APPLY FORM HEEL RAISERS TO RIGHT AND LEFT HEELS -POSITIONING: TURN AND REPOSITION PATIENT Q 2H OR SOONER USE PILLOWS TO KEEP BONY PROMINENCES FROM DIRECT CONTACT WITH SURFACES USE REPOSITIONING WEDGES TO PROVIDE 30-DEGREE ANGLE FOR SIDE LYING POSITIONS OFFLOADING OR FOAM DRESSING TO ALL TUBING TO PREVENT MEDICAL DEVICES RELATED PRESSURE INJURY -RE-EVALUATING AND MANAGING INCONTINENCE MONITOR SKIN CONDITION DURING POSITION CHANGE DO NOT MASSAGE REDNESS, BONY PROMINENCES, DO NOT USE DONUT-TYPE DEVICES FREQUENT GRIFFIN-CARE AND PROVIDE BARRIER CREAMS PRN IF SOILING MOISTURE CONTROL BY OFFER BED CARRILLO/URINAL /ABSORBENT PAD TO WICK AND HOLD MOISTURE. KEEP SKIN DRY AND PROTECT FROM FRICTION -MANAGE FRICTION/SHEAR/MOBILITY KEEP HOB AT THE LOWEST LEVEL OF ELEVATION NO MORE THAN 30 DEGREE UNLESS OTHERWISE CONTRAINDICATED USE LIFT SHEET OR TRANSFER DEVICE TO MOVE PATIENT AND PREVENT LATERAL SHEER. PROTECT HEELS, ELBOWS BONY PROMINENCES WITH SKIN BERRIES OR FOAM DRESSING IF EXPOSED TO FRICTION OFFLOAD BILATERAL HEELS BY PLACING PILLOWS UNDER CALVES AT ALL TIMES, UNLESS OTHERWISE CONTRAINDICATED -PRESSURE REDISTRIBUTION SURFACE THERAPY BEV ISOFLEX AKIRA MATTRESS -NUTRITION: PLEASE FOLLOW RD RECOMMENDATIONS AND OFFER NUTRITION SUPPLEMENTS IF ORDERED
[2022-03-03] MEDS: THERAHONEY GEL 42.5 GM TP SCH (12:40)
[2022-03-03] MEDS: Z-GUARD PASTE TP SCH (12:40)
--- NOTE | 2022-03-03 12:41 | NUR ---
BLOOD SUGAR CHECK WAS 241. ADMINISTERED 4 UNITS OF INSULIN PER MD ORDERED.
--- NOTE | 2022-03-03 15:15 | NUR ---
PATIENT'S VISITOR AT BEDSIDE.
[2022-03-03] MEDS: ACETAMINOPHEN 325 MG TAB PO PRN (16:54)
--- NOTE | 2022-03-03 16:54 | NUR ---
PATIENT TEMPERATURE WAS 100.4. ADMINISTERED PRN TYLENOL PER MD ORDERED.
--- NOTE | 2022-03-03 19:10 | NUR ---
ENDORSED TO COOK DINNER NURSE FOR CONTINUITY OF CARE. PT IS STABLE.
--- NOTE | 2022-03-03 19:15 | NUR ---
RECEIVED BEDSIDE REPORT FROM DAY SHIFT NURSE, ASSUMED CARE. PT IN BED IN NO APPARENT ACUTE DISTRESS, BREATHING TRACH TO T-PIECE AT 10 L/MIN FIO2 40%, 02 SAT 92%, CRACKLES HEARD UPON AUSCULTATION, BILATERAL EVEN BREATHS. RUNNING LEVOPHED AT 5 MCG/MIN AND D5 1/2 NS AT 100 ML/HR VIA RUIZ PICC LINE. G TUBE IN PLACE RUNNING NEPRO AT 10 ML/HR BUT HAD TO STOP DUE TO RESIDUAL OF 200 ML. FAY CATHE[address] IN PLACE. SKIN NON-INTACT WITH 2 PACKED SACRUM WOUNDS. ALL SAFETY MEASURES IN PLACE, WILL CONTINUE TO CLOSELY MONITOR AND FOLLOW POC.
[2022-03-03] MEDS: MORPHINE SULFATE 2 MG/ML SYR IVP PRN (19:30)
--- NOTE | 2022-03-03 19:30 | NUR ---
DR. BAY AT BEDSIDE ASSESSING PT'S SACRUM WOUND, ADMINISTERED MORPHINE PER PRN ORDERS FOR PAIN.
--- NOTE | 2022-03-03 19:45 | NUR ---
phone call to pts bello Agarwal,([phone]), no answer, left message to call medical underwriter.
--- NOTE | 2022-03-03 19:54 | NUR ---
PT PRESENTS LAYING IN BED ON COOL AEROSOL MIST AT 40% FIO2 10LPM SATING 90%. ANTERIOR AUSCULTATIONS REVEALED COARSE CRACKLES THROUGHOUT ALL LUNG LOOMIS, DEEP TRACHEAL SXN FOR MODERATE PALE/YELLOW THICK SECRETIONS. NO SIGNS OF RESPIRATORY DISTRESS AT THIS TIME. WILL CONTINUE TO MONITOR.
[2022-03-03] MEDS: INSULIN LANTUS 100 UNITS/ML 10 ML VIAL SUBQ SCH (20:25)
[2022-03-03] MEDS: SIMVASTATIN 40 MG TAB GT SCH (20:35)
[2022-03-04] VITALS (25 sets, daily range): BP systolic 85–125; BP diastolic 45–77
[2022-03-04] MEDS: PIPERACILLIN/TAZOBACTAM 2.25 GM in DEXTROSE 5% 50 ML IV SCH ×4 (00:04→18:30)
[2022-03-04] MEDS: NOREPINEPHRINE 8 MG in DEXTROSE 5% 250 ML IV PRN (00:17)
[2022-03-04] MEDS: Z-GUARD PASTE TP SCH ×2 (01:08→13:06)
--- NOTE | 2022-03-04 02:30 | NUR ---
PT SLEEPING COMFORTABLY IN BED O2 SAT 98% WITH TRACH TO T-PIECE AT 10L/MIN FIO2 40%, PT IN NO APPARENT ACUTE DISTRESS. ALL SAFETY MEASURES IN PLACE, WILL CONTINUE TO CLOSELY MONITOR AND FOLLOW POC.
[2022-03-04] MEDS: VANCOMYCIN 1,000 MG in DEXTROSE 5% 250 ML IV SCH ×2 (04:04→05:00)
--- NOTE | 2022-03-04 04:30 | NUR ---
PT NOTED TO HAVE LABORED BREATHING, RT AT BEDSIDE ASSESSING. O2 SAT 96%, RESP 28, ON TRACH. WILL CONTINUE TO CLOSELY MONITOR AND FOLLOW POC.
--- NOTE | 2022-03-04 05:08 | NUR ---
EDMD AT BEDSIDE PUTTING PT ON VENTILATOR.
[2022-03-04 05:13] LABS: ANION GAP 6.6 (8-16); CARBON DIOXIDE 29.4 mmol/L (21-32); CHLORIDE 110 mmol/L (98-107); CREATININE 1.3 mg/dL (0.6-1.3); GLUCOSE 295 mg/dL (74-106); SODIUM SERUM 142 mmol/L (136-145); UREA NITROGEN, BLOOD 41 mg/dL (7-18)
[2022-03-04] MEDS ORDERED: LORazepam 2 MG/ML VIAL ONE (05:20)
[2022-03-04] MEDS ORDERED: LORazepam 2 MG/ML VIAL IVP SCH (05:20)
--- NOTE | 2022-03-04 05:27 | NUR ---
CALLED [facility] AFTER HOURS LINE TALKED TO ERIC REGARDING VANCO THROUGH LEVEL OF 37.8, ORDERED TO HOLD SCHEDULED VANCOMYCIN.
[2022-03-04 05:28] LABS: BASOPHILS # (AUTO) 0.1 K/uL (0.00-0.22); EOSINOPHILS # (AUTO) 0.7 K/uL (0-0.4); HEMATOCRIT 27.1 % (36-52); HEMOGLOBIN 8.6 g/dL (12.0-18.0); LYMPHOCYTES # (AUTO) 0.9 K/uL (2.0-11.5); LYMPHOCYTES % (AUTO) 11.3 % (20.5-51.1); MEAN CORPUSCULAR HEMOGLOBIN 27 pg (27-31); MEAN CORPUSCULAR HGB CONC 32 g/dL (33-37); MEAN CORPUSCULAR VOLUME 86.1 fL (80-94); MONOCYTES # (AUTO) 0.7 K/uL (0.8-1.0); MONOCYTES % (AUTO) 8.5 % (1.7-9.3); NEUTROPHILS # (AUTO) 5.9 K/uL (1.8-7.7); NEUTROPHILS % (AUTO) 71.2 % (42.2-75.2); PLATELET COUNT (AUTO) 411 K/uL (140-450); RED BLOOD CELL COUNT(AUTO) 3.14 MIL/uL (4.20-6.10); RED CELL DISTRIBUTION WIDTH 18.2 % (11.6-13.7); WHITE BLOOD COUNT (AUTO) 8.3 K/uL (4.8-10.8)
--- NOTE | 2022-03-04 05:28 | NUR ---
PT PLACED ON VENT DUE TO INCREASED WOB, USE OF ACCESSORY MUSCLES, AND TACHYPNEA RR >45. TRACH WAS CHANGED BY ER DR. BEYER TO A PORTEX 7 CONNECTED TO XtimeSCAPE R860 VENTILATOR SETTINGS PRVC VT400, RR22, PEEP+6, FIO2 60%. PT PRESENTS AWAKE CURRENTLY SATING 100%. WOB AND TACHYPNEA IMPROVED NO SINGS OF RESPIRATORY DISTRESS NOTED AT THIS TIME. ANTERIOR AUSCULTATION REVEALED BS CLEAR/DIMINISHED THROUGHOUT ALL LUNG LOOMIS. HOB ELEVATED, AMBU BAG AT BEDSIDE, VENT PLUGGED INTO RED OUTLET, ALARMS ARE ON AND AUDIBLE. WILL CONTINUE TO MONITOR.
[2022-03-04] MEDS: BLOOD GLUCOSE MONITORING 1 DEV DEV FS SCH ×4 (06:09→23:30)
--- NOTE | 2022-03-04 06:19 | NUR ---
PT RESTING COMFORTABLY IN BED IN NO APPARENT ACUTE DISTRESS, TRACH TO VENT O2 SAT 100%, NON LABORED BREATHING ALL SAFETY MEASURES IN PLACE, WILL CONTINUE TO CLOSELY MONITOR AND FOLLOW POC.
--- NOTE | 2022-03-04 07:30 | NUR ---
GAVE BEDSIDE REPORT TO DAY SHIFT NURSE, ENDORSED CARE. PT IN NO ACUTE DISTRESS.
--- NOTE | 2022-03-04 07:30 | NUR ---
RECEIVED BEDSIDE REPORT FROM JOHN JOYNER RN FOR CONTINUITY OF CARE. PT ASLEEP SUPINE IN THE BED. EYES CLOSED, PERRL. AAOX0. TRACH TO VENT, ACPRVC, FIO2 60%, VT 400, R 22, PEEP 6. SR ON MONITOR. BOWEL SOUNDS ACTIVE. F/C TO GRAVITY. SKIN NOT INTACT, SEE WOUND ASSESSMENT. GENERALIZED WEAKNESS. L UA PICC SINGLE LUMEN, INFUSING D5 1/2NS AT 100 ML/HR. STANDARD PRECAUTIONS IN PLACE. SAFETY PRECAUTIONS IN PLACE. INITIAL ASSESSMENT COMPLETE, WILL CONTINUE TO CLOSELY MONITOR.
[2022-03-04] MEDS: DEXT 5% / NACL 0.45% 1,000 ML IV SCH ×2 (07:34→16:36)
--- NOTE | 2022-03-04 08:15 | NUR ---
XRAY AT BEDSIDE
--- NOTE | 2022-03-04 08:20 | NUR ---
SEEN AND EXAMINED BY DR CHENG. SAID HE WILL CALL PT SON, JENELLE, REGARDING DEBRIDEMENT PROCEDURE.
[2022-03-04] MEDS: MULTIVITAMIN 1 TAB GT SCH (08:49)
[2022-03-04] MEDS: PANTOPRAZOLE 40 MG INJ VIAL IVP SCH ×2 (08:49→20:46)
[2022-03-04] MEDS: METOPROLOL 25 MG TAB PO SCH ×2 (08:50→21:00)
[2022-03-04] MEDS: INSULIN LANTUS 100 UNITS/ML 10 ML VIAL SUBQ SCH (08:53)
[2022-03-04] MEDS: INSULIN LISPRO SLIDING SCALE 100 UNITS/ML VIAL SUBQ PRN ×3 (08:55→19:34)
--- NOTE | 2022-03-04 09:50 | NUR ---
PT FAMILY AT BEDSIDE.
--- NOTE | 2022-03-04 09:56 | NUR ---
CALLED PT SON, JENELLE, TO EXPECT PHONE CALL LATER TODAY REGARDING DEBRIDEMENT CONSENT. UPDATED REGARDING PT CONDITION. ALL QUESTIONS ANSWERED AT THIS TIME.
[2022-03-04] MEDS ORDERED: FUROSEMIDE 20 MG/2 ML VIAL IVP ONE (13:00)
[2022-03-04] MEDS: THERAHONEY GEL 42.5 GM TP SCH (13:06)
--- NOTE | 2022-03-04 14:25 | NUR ---
RECEIVED CALL FROM [place], SPOKE WITH RICHARD. UPDATED REGARDING PT CONDITION. UNABLE TO TRANSFER AT THIS TIME.
[2022-03-04] MEDS ORDERED: LIDOCAINE MPF 1% 10 MG/ML VIAL INJ SCH (14:30)
--- NOTE | 2022-03-04 14:30 | NUR ---
DR BAY EXPLAINING DEBRIDEMENT PROCEDURE TO JENELLE VIA TELEPHONE. WITNESS WITH MYSELF AND LIZETTE HYDE.
--- NOTE | 2022-03-04 14:30 | NUR ---
PT MOTHER VISITING AT BEDSIDE. UPDATED REGARDING PT CONDITION. ALL QUESTIONS ANSWERED AT THIS TIME. Addendum: 03/04/22 at 1536 by Daria López RN WRONG PT. PLEASE DISREGARD.
[2022-03-04] MEDS ORDERED: LIDOCAINE MPF 1% 5 ML ONE (14:48)
--- NOTE | 2022-03-04 15:15 | NUR ---
PT CLEANED AND REPOSITIONED. TOLERATED WELL. WILL CONTINUE TO CLOSELY MONITOR.
--- NOTE | 2022-03-04 19:20 | NUR ---
RECEIVED BEDSIDE REPORT FROM DAY SHIFT NURSE, ASSUMED CARE. PT IN BED IN NO APPARENT ACUTE DISTRESS, BREATHING TRACH TO VENT WITH SETTINGS PRVC, VT 400, R 22, PEEP 6, FIO2 60%, WITH O2 SAT 96%. CRACKLES HEARD UPON AUSCULTATION, BILATERAL EVEN BREATHS. AOX0, NON-VERBAL, EYES CLOSED, ONLY RESPONDS TO TOUCH. RUNNING LEVOPHED AT 2 MCG/MIN AND D5 1/2 NS AT 100 ML/HR VIA RUIZ PICC LINE. G TUBE IN PLACE RUNNING NEPRO AT 20 ML/HR WITH 0 RESIDUAL. FAY CATHETER IN PLACE. SKIN NON-INTACT WITH 2 SACRUM WOUNDS THAT WENT THROUGH BEDSIDE DEBRIDEMENT TODAY. ALL SAFETY MEASURES IN PLACE, WILL CONTINUE TO CLOSELY MONITOR AND FOLLOW POC.
[2022-03-04] MEDS: SIMVASTATIN 40 MG TAB GT SCH (20:47)
[2022-03-05] VITALS (31 sets, daily range): BP systolic 86–130; BP diastolic 42–66
[2022-03-05] MEDS: PIPERACILLIN/TAZOBACTAM 2.25 GM in DEXTROSE 5% 50 ML IV SCH ×4 (00:18→18:07)
[2022-03-05] MEDS: Z-GUARD PASTE TP SCH ×2 (01:00→13:28)
[2022-03-05] MEDS: INSULIN LISPRO SLIDING SCALE 100 UNITS/ML VIAL SUBQ PRN ×5 (01:05→18:08)
[2022-03-05] MEDS: DEXT 5% / NACL 0.45% 1,000 ML IV SCH ×4 (03:34→17:00)
--- NOTE | 2022-03-05 04:00 | NUR ---
MORNING CARE PROVIDED. PT TOLERATED WELL, IN NO ACUTE DISTRESS. CONTINUES TRACH TO VENT O2 SAT 100%. ALL SAFETY MEASURES IN PLACE, WILL CONTINUE TO CLOSELY MONITOR AND FOLLOW POC.
[2022-03-05 05:09] LABS: ANION GAP 8.7 (8-16); CARBON DIOXIDE 27.7 mmol/L (21-32); CHLORIDE 107 mmol/L (98-107); CREATININE 1.3 mg/dL (0.6-1.3); GLUCOSE 293 mg/dL (74-106); POTASSIUM 3.4 mmol/L (3.5-5.1); SODIUM SERUM 140 mmol/L (136-145); UREA NITROGEN, BLOOD 31 mg/dL (7-18)
[2022-03-05 05:24] LABS: BASOPHILS # (AUTO) 0.1 K/uL (0.00-0.22); EOSINOPHILS # (AUTO) 0.6 K/uL (0-0.4); LYMPHOCYTES # (AUTO) 1.5 K/uL (2.0-11.5); MONOCYTES # (AUTO) 0.7 K/uL (0.8-1.0)
[2022-03-05 05:40] LABS: BASOPHILS % (AUTO) 0.5 % (0.0-2.0); HEMATOCRIT 28.7 % (36-52); HEMOGLOBIN 8.9 g/dL (12.0-18.0); MEAN CORPUSCULAR HEMOGLOBIN 27 pg (27-31); MEAN CORPUSCULAR HGB CONC 31 g/dL (33-37); MEAN CORPUSCULAR VOLUME 86.4 fL (80-94); MONOCYTES % (AUTO) 6.6 % (1.7-9.3); NEUTROPHILS # (AUTO) 7.2 K/uL (1.8-7.7); NEUTROPHILS % (AUTO) 71.7 % (42.2-75.2); PLATELET COUNT (AUTO) 433 K/uL (140-450); RED BLOOD CELL COUNT(AUTO) 3.32 MIL/uL (4.20-6.10); RED CELL DISTRIBUTION WIDTH 18.4 % (11.6-13.7)
[2022-03-05 05:55] LABS: EOSINOPHILS % (AUTO) 6.3 % (0.0-4.0); LYMPHOCYTES % (AUTO) 14.9 % (20.5-51.1)
[2022-03-05] MEDS: BLOOD GLUCOSE MONITORING 1 DEV DEV FS SCH ×3 (06:01→18:07)
--- NOTE | 2022-03-05 07:15 | NUR ---
RECEIVED BEDSIDE REPORT FROM JOHN JOYNER RN FOR CONTINUITY OF CARE. PT ASLEEP SUPINE IN THE BED. EYES CLOSED, PERRL. AAOX0. TRACH TO VENT, ACPRVC, FIO2 55%, VT 400, R 22, PEEP 6. SR ON MONITOR. BOWEL SOUNDS ACTIVE. F/C TO GRAVITY. SKIN NOT INTACT, SEE WOUND ASSESSMENT. GENERALIZED WEAKNESS. L UA PICC SINGLE LUMEN, INFUSING D5 1/2NS AT 100 ML/HR, AND LEVOPHED AT 4 MCG/MIN. STANDARD PRECAUTIONS IN PLACE. SAFETY PRECAUTIONS IN PLACE. INITIAL ASSESSMENT COMPLETE, WILL CONTINUE TO CLOSELY MONITOR.
--- NOTE | 2022-03-05 08:25 | NUR ---
RECEIVED ON A [employer] R860 VENTILATOR PLUGGED INTO RED OUTLET TOLERATING WELL WITHOUT ADVERSE REACTIONS NOTED TO A PORTEX DFEN #7 AIRWAY SECURED WITH A JOSHUA TRACH TIE CUFF PRESSURE CHECKED NOTED INCREASED Vt TO 425ml (6ml/kg = 420ml) SATURATION 98% ON FIO2 OF 55% PEEP 5cmH2O B/P 114/60 GOOD CHEST RISE DEEP TRACHEAL SUCTION FOR LARGE THIN YELLOW SECRETIONS AIRWAY PATENT POST TRACHEAL SUCTION TITRATED FIO2 TO 40%; DECREASED PEEP TO 5cmH2O
[2022-03-05] MEDS: MULTIVITAMIN 1 TAB GT SCH (08:38)
[2022-03-05] MEDS: METOPROLOL 25 MG TAB PO SCH ×2 (08:39→21:00)
[2022-03-05] MEDS: FUROSEMIDE 20 MG/2 ML VIAL IVP SCH (08:39)
[2022-03-05] MEDS: PANTOPRAZOLE 40 MG INJ VIAL IVP SCH ×2 (08:39→20:17)
[2022-03-05] MEDS: INSULIN LANTUS 100 UNITS/ML 10 ML VIAL SUBQ SCH (08:40)
--- NOTE | 2022-03-05 10:49 | NUR ---
RESTING WELL GOOD CHEST RISE DEEP TRACHEAL SUCTION FOR SMALL SEMI THICK YELLOW SECRETIONS AIRWAY PATENT SATURATION 100% ON FIO2 OF 45% TITRATED FIO2 TO 40% CHEYANNE/RN NOTIFIED
[2022-03-05] MEDS: THERAHONEY GEL 42.5 GM TP SCH (13:28)
--- NOTE | 2022-03-05 13:41 | NUR ---
RESTING WELL NO DISTRESS NOTED NO PULMONARY SUCTIONING AT THIS TIME PULP MILL SUPERVISOR TO MONITOR
--- NOTE | 2022-03-05 14:00 | NUR ---
PT CLEANED AND REPOSITIONED. TOLERATED WELL. SACRAL WOUND DRESSING CHANGED. WILL CONTINUE TO CLOSELY MONITOR.
--- NOTE | 2022-03-05 15:32 | NUR ---
NO DISTRESS NOTED GOOD CHEST RISE DEEP TRACHEAL SUCTION FOR COPIOUS THIN PALE YELLOW SECRETIONS AIRWAY PATENT SATURATION 99% ON FIO2 OF 40% PEEP 5cmH2O TITRATED FIO2 TO 35% REILLY/RN NOTIFIED
--- NOTE | 2022-03-05 19:15 | NUR ---
ENDORSED BEDSIDE REPORT TO JOHN JOYNER RN FOR CONTINUITY OF CARE.
--- NOTE | 2022-03-05 19:20 | NUR ---
RECEIVED BEDSIDE REPORT FROM DAY SHIFT NURSE, ASSUMED CARE. PT IN BED IN NO APPARENT ACUTE DISTRESS, BREATHING TRACH TO VENT WITH SETTINGS A/C PRVC, VT 425, R 22, PEEP 5, FIO2 30%, WITH O2 SAT 98%. CRACKLES HEARD UPON AUSCULTATION, BILATERAL EVEN BREATHS. AOX0, NON-VERBAL, ONLY RESPONDS TO TOUCH. RUNNING LEVOPHED AT 4 MCG/MIN AND D5 1/2 NS AT 100 ML/HR VIA RUIZ PICC LINE. G TUBE IN PLACE RUNNING NEPRO AT 30 ML/HR WITH 0 RESIDUAL. FAY CATHETER IN PLACE. SKIN NON-INTACT WITH 2 SACRUM WOUNDS WITH DRESSINGS. ALL SAFETY MEASURES IN PLACE, WILL CONTINUE TO CLOSELY MONITOR AND FOLLOW POC.
[2022-03-05] MEDS: SIMVASTATIN 40 MG TAB GT SCH (20:17)
[2022-03-06] VITALS (38 sets, daily range): BP systolic 53–153; BP diastolic 39–88
--- NOTE | 2022-03-06 00:30 | NUR ---
PT IN BED WITH EYES CLOSED IN NO APPARENT ACUTE DISTRESS, TRACH TO VENT WITH FIO2 AT 30%, 02 SAT 97%. CONTINUES ON LEVOPHED 4 MCG/MIN RUNNING VIA RUIZ PICC LINE AND D5 1/2NS AT 100 ML/HR. ALL SAFETY MEASURES IN PLACE, WILL CONTINUE TO CLOSELY MONITOR AND FOLLOW POC.
[2022-03-06] MEDS: PIPERACILLIN/TAZOBACTAM 2.25 GM in DEXTROSE 5% 50 ML IV SCH ×4 (00:45→17:09)
[2022-03-06] MEDS: INSULIN LISPRO SLIDING SCALE 100 UNITS/ML VIAL SUBQ PRN ×3 (01:00→17:18)
[2022-03-06] MEDS: Z-GUARD PASTE TP SCH ×2 (01:56→13:24)
--- NOTE | 2022-03-06 05:00 | NUR ---
MORNING CARE RENDERED, PT HAD BOWEL MOVEMENT, SACRAL WOUND DRESSINGS CHANGED, PT TOLERATED WELL. NO SIGNS OF ACUTE DISTRESS, TRACH TO VENT O2 SAT 96%. G TUBE FEEDING RUNNING NEPRO AT 40ML/HR. ALL SAFETY MEASURES IN PLACE. WILL CONTINUE TO CLOSELY MONITOR AND FOLLOW POC.
[2022-03-06] MEDS: BLOOD GLUCOSE MONITORING 1 DEV DEV FS SCH ×4 (05:50→17:15)
[2022-03-06 05:53] LABS: BASOPHILS % (AUTO) 0.3 % (0.0-2.0); EOSINOPHILS # (AUTO) 0.4 K/uL (0-0.4); HEMATOCRIT 30.4 % (36-52); HEMOGLOBIN 9.7 g/dL (12.0-18.0); LYMPHOCYTES # (AUTO) 1.5 K/uL (2.0-11.5); LYMPHOCYTES % (AUTO) 16.8 % (20.5-51.1); MEAN CORPUSCULAR HEMOGLOBIN 27 pg (27-31); MEAN CORPUSCULAR HGB CONC 32 g/dL (33-37); MEAN CORPUSCULAR VOLUME 84.2 fL (80-94); MONOCYTES # (AUTO) 0.6 K/uL (0.8-1.0); NEUTROPHILS # (AUTO) 6.5 K/uL (1.8-7.7); NEUTROPHILS % (AUTO) 71.9 % (42.2-75.2); PLATELET COUNT (AUTO) 459 K/uL (140-450); RED BLOOD CELL COUNT(AUTO) 3.61 MIL/uL (4.20-6.10); RED CELL DISTRIBUTION WIDTH 17.7 % (11.6-13.7)
[2022-03-06 05:59] LABS: PROTHROMBIN TIME 11.3 secs (10.8-13.4)
[2022-03-06] MEDS ORDERED: NOREPINEPHRINE 4 MG/4 ML VIAL IV ONE (06:13)
[2022-03-06 06:14] LABS: ANION GAP 10.8 (8-16); CARBON DIOXIDE 25.7 mmol/L (21-32); CHLORIDE 104 mmol/L (98-107); CREATININE 1.2 mg/dL (0.6-1.3); GLUCOSE 289 mg/dL (74-106); POTASSIUM 3.5 mmol/L (3.5-5.1); SODIUM SERUM 137 mmol/L (136-145); UREA NITROGEN, BLOOD 23 mg/dL (7-18)
[2022-03-06] MEDS: NOREPINEPHRINE 8 MG in DEXTROSE 5% 250 ML IV PRN (06:31)
--- NOTE | 2022-03-06 07:15 | NUR ---
RECEIVED REPORT FROM BARRETT LOPEZ.
--- NOTE | 2022-03-06 08:15 | NUR ---
RECEIVED ON A [employer] R860 VENTILATOR PLUGGED INTO RED OUTLET TOLERATING WELL WITHOUT ADVERSE REACTIONS NOTED TO A PORTEX DFEN #7 AIRWAY SECURED WITH A JOSHUA TRACH TIE CUFF PRESSURE CHECK NOTED AMBU BAG A BEDSIDE RESTING WELL GOOD CHEST RISE DEEP TRACHEAL SUCTION FOR COPIOUS THIN YELLOW SECRETIONS AIRWAY PATENT SATURATION 98% ON FIO2 OF 30% PEEP 5cmH2O TITRATED FIO2 TO 28% THANIA/RN NOTIFIED
--- NOTE | 2022-03-06 08:30 | NUR ---
PATIENT OPENS EYES SPONTANEOUSLY. WILL NOT FOLLOW COMMANDS. BILAT. MITTENS IN PLACE. DOES ATTEMPT TO PUSH RN HANDS AWAY AND REACH FOR TRACH. PUPILS EQUAL AND REACTIVE 3MM. LEFT UA PICC LINE WITH D5.455NS AT 100CC/HR, LEVO AT 4MCG/MIN. HEART SOUNDS REGULAR. MONITOR SR-ST. GENERALIZED 2+ EDEMA. SCROTAL EDEMA NOTED. ANTERIOR/LATERAL BREATH SOUNDS. UPPER LOBES CLEAR. BILAT. BASES DIMINISHED. TRACH TO VENT VT 425/FIO2 .30/RATE 22/PEEP 5. SAO2 93-97%. ABDOMEN WITH BOWEL SOUNDS IN ALL QUAD. G-TUBE IN PLACE. NO RISIDUAL. NEPRO AT 40ML/HR. LIQUID BROWN BM. PRESSURE WOUNDS AT SACCRUM AND BILATERAL BUTTOCK. EXCORIATION AROUND GROIN, SCROTUM AND PENIS. FAY IN PLACE WITH YELLOW URINE LARGE AMOUNT OF SEDIMENT.
[2022-03-06] MEDS: FUROSEMIDE 20 MG/2 ML VIAL IVP SCH (09:00)
[2022-03-06] MEDS: PANTOPRAZOLE 40 MG INJ VIAL IVP SCH ×2 (09:00→20:08)
[2022-03-06] MEDS: METOPROLOL 25 MG TAB PO SCH ×2 (09:00→20:07)
[2022-03-06] MEDS: MULTIVITAMIN 1 TAB GT SCH (09:00)
[2022-03-06] MEDS ORDERED: INSULIN LANTUS 100 UNITS/ML 10 ML VIAL SUBQ SCH (09:00)
--- NOTE | 2022-03-06 09:59 | NUR ---
NO APPARENT PULMONARY DISTRESS NOTED EQUAL CHEST RISE DEEP TRACHEAL SUCTION FOR SMALL THIN YELLOW SECRETIONS AIRWAY PATENT
--- NOTE | 2022-03-06 10:15 | NUR ---
TALKED WITH SON DIANN REGARDING FATHER AND RECEIVED CONSENT FOR THORACENTESIS.
[2022-03-06] MEDS ORDERED: LIDOCAINE MPF 1% 0 ML ONE ×2 (12:16→12:20)
--- NOTE | 2022-03-06 12:30 | NUR ---
DR. Ervin COPELAND, RADIOLOGIST HERE TO COMPLETE THORACENTESIS ON RIGHT. TIME OUT COMPLETED. PATIENT POSITIONED ON LEFT SIDE. OBTAINED 200ML OF SEROSANGUINEOUS DRAINAGE. PATIENT TOLERATED WELL.
[2022-03-06] MEDS: MIDODRINE 5 MG TAB PO SCH ×2 (13:00→19:02)
[2022-03-06] MEDS ORDERED: LIDOCAINE/EPI 1% 1:100000 20 ML VIAL INJ ONE (13:00)
[2022-03-06] MEDS ORDERED: LIDOCAINE MPF 1% 10 MG/ML VIAL INJ SCH (13:00)
--- NOTE | 2022-03-06 13:00 | NUR ---
DR. PRATT HERE TO SEE PATIENT. STATED NO LAB NEEDED ON THORACENTESIS FLUID.
[2022-03-06] MEDS: THERAHONEY GEL 42.5 GM TP SCH (13:24)
--- NOTE | 2022-03-06 13:52 | NUR ---
STABLE GOOD CHEST RISE DEEP TRACHEAL SUCTION FOR COPIOUS THIN YELLOW SECRETIONS AIRWAY PATENT
[2022-03-06] MEDS: DEXT 5% / NACL 0.45% 1,000 ML IV SCH ×2 (14:30→19:34)
--- NOTE | 2022-03-06 19:21 | NUR ---
STABLE RESTING COMFORTABLY GOOD CHEST RISE DEEP TRACHEAL SUCTION FOR LARGE SEMI THICK PALE YELLOW SECRETIONS AIRWAY PATENT
--- NOTE | 2022-03-06 19:23 | NUR ---
REPORT GIVEN TO BARRETT BURTON. PATIENT STABLE.
--- NOTE | 2022-03-06 19:30 | NUR ---
RECEIVED REPORT FROM THANIA RN DAYSHIFT NURSE AT BEDSIDE FOR CONTINUITY OF CARE. PT LYING IN BED HE IS AOX1 HOB ELEVATED 35%. HE IS A TRACH TO VENT WITH VENT SETTINGS FOLLOWS: FIO2 AT 28% VT 425 RR 22 PEEP IS 5. PT ALSO HAS G TUBE INTACT. NO RESIDUAL REPORTED. HE IS RUNNING NEPHRO AT 40 MLS/HR. PT NOTED WITH BILATERAL MITTS TO PREVENT HIM FROM PULLING OUT TRACH. PT ALSO HAS A FAY CATHETER INTACT AND DRAINING LIGHT YELLOW URINE.V/S FOLLOWS; P 80 RR 25 B/P 106/72 02 97% ON AL TRACH TO VENT SETTINGS. ALL FALLS AND ASPIRATION PRECAUTIONS IN PLACE.
[2022-03-06] MEDS: SIMVASTATIN 40 MG TAB GT SCH (20:08)
--- NOTE | 2022-03-06 20:30 | NUR ---
PT GIVEN ORDERED IV PROTONIX FOR GI PROPHYLACTIC WELL ORDERED ZOCOR FOR HYPERLIPIDEMIA. D5 1/2NS BAG STILL RUNNING AR 100MLS/HR ORDERED NO NEED FOR REPLACEMENT AT THI TIME. MEDS GIVEN , EDUCATION PROVIDED, PT UNABLE TO VERBALIZE UNDERSTANDING. ARTUR GIVEN VIA GT FOR SUPPLEMENT FOR SACRAL WOUND HEALING. V/S FOLLOWS: T 98.4 P 84 R 27 B/P 94/44 02 96% ON ALL CURRENT TRACH TO ENT SETTINGS. ALL ORDERED PRECAUTIONS IN PLACE.
--- NOTE | 2022-03-06 22:30 | NUR ---
PT TURNED AND REPOSITIONED IN BED, HE WAS SUCTION X1. ALL FLUIDS RUNNING ORDERED. ALL ORDERED PRECAUTIONS IN PLACE.
[2022-03-07] VITALS (24 sets, daily range): BP systolic 86–144; BP diastolic 42–80
--- NOTE | 2022-03-07 00:30 | NUR ---
PT FINGERSTICK IS 241, HE WAS GIVEN ORDERED 4 UNITS OF HUMALOG PER S/S. ZOSYN 2.25MG RUNNING AT 100MLS/HR ORDERED. ALL ORDERED PRECAUTIONS IN PLACE. T 97.5 P 86 R 22 B/P 103/52 02 96%ON ALL TRACH TO VENT SETTINGS.
[2022-03-07] MEDS: INSULIN LISPRO SLIDING SCALE 100 UNITS/ML VIAL SUBQ PRN ×3 (00:47→18:19)
[2022-03-07] MEDS: PIPERACILLIN/TAZOBACTAM 2.25 GM in DEXTROSE 5% 50 ML IV SCH ×4 (00:52→17:59)
[2022-03-07] MEDS: BLOOD GLUCOSE MONITORING 1 DEV DEV FS SCH ×4 (00:52→18:17)
[2022-03-07] MEDS: Z-GUARD PASTE TP SCH ×2 (01:00→13:18)
--- NOTE | 2022-03-07 02:30 | NUR ---
PT HAD A BM, HE WAS TURNED, CHANGED AND REPOSITIONED IN BED. PT WOUND DRESSINGS WERE CHANGED. PT ALSO REPOSITED IN BED. 5D 1/2 NS BAG CHANGED AND RUNNING ORDERED. ALL ORDERED PRECAUTIONS IN PLACE.
[2022-03-07] MEDS: DEXT 5% / NACL 0.45% 1,000 ML IV SCH ×2 (03:00→20:49)
[2022-03-07] MEDS: MIDODRINE 5 MG TAB PO SCH ×3 (06:28→18:30)
[2022-03-07 06:29] LABS: BASOPHILS # (AUTO) 0.1 K/uL (0.00-0.22); BASOPHILS % (AUTO) 0.9 % (0.0-2.0); EOSINOPHILS # (AUTO) 0.7 K/uL (0-0.4); EOSINOPHILS % (AUTO) 6.1 % (0.0-4.0); HEMATOCRIT 25.2 % (36-52); HEMOGLOBIN 8.5 g/dL (12.0-18.0); LYMPHOCYTES # (AUTO) 1.8 K/uL (2.0-11.5); LYMPHOCYTES % (AUTO) 16.3 % (20.5-51.1); MEAN CORPUSCULAR HEMOGLOBIN 28 pg (27-31); MEAN CORPUSCULAR HGB CONC 34 g/dL (33-37); MEAN CORPUSCULAR VOLUME 84.3 fL (80-94); MONOCYTES # (AUTO) 0.7 K/uL (0.8-1.0); MONOCYTES % (AUTO) 6.6 % (1.7-9.3); NEUTROPHILS # (AUTO) 7.7 K/uL (1.8-7.7); NEUTROPHILS % (AUTO) 70.1 % (42.2-75.2); PLATELET COUNT (AUTO) 472 K/uL (140-450); RED BLOOD CELL COUNT(AUTO) 2.99 MIL/uL (4.20-6.10); RED CELL DISTRIBUTION WIDTH 17.7 % (11.6-13.7)
--- NOTE | 2022-03-07 06:30 | NUR ---
PT FINGERSTICK IS 299 GIVEN 6 UNITS PER HUMALOG S/S. PT WAS CLEANED AND TURNED, ORAL CARE PROVIDED. ZOSYN HUNG AND RUNNING AT 100 MLS/HR AND PT GIVEN MIDODRINE VIA GT FOR LOW B/P. 700 URINE OUTPUT UNABLE TO VERBALIZED UNDERSTANDING OF SCHEDULED MEDICATIONS. ALL ORDERED PRECAUTIONS IN PLACE.
[2022-03-07 07:00] LABS: ANION GAP 7.4 (8-16); CARBON DIOXIDE 28.7 mmol/L (21-32); CHLORIDE 102 mmol/L (98-107); CREATININE 1.1 mg/dL (0.6-1.3); GLUCOSE 300 mg/dL (74-106); POTASSIUM 3.1 mmol/L (3.5-5.1); SODIUM SERUM 135 mmol/L (136-145); UREA NITROGEN, BLOOD 22 mg/dL (7-18)
--- NOTE | 2022-03-07 07:30 | NUR ---
RECEIVED REPORT FROM BOND UNDERWRITER RNMICHEAL.
--- NOTE | 2022-03-07 07:50 | NUR ---
Received very thorough and complete report from chargeRN February using SBAR method just before meeting pt. At bedside for quick assess. pt is sleeping but awakes easily. VSS, aaox2, pt appears to be slightly combative or in pain, hard to assess since pt is Tagalog speaking only. coarse lung sounds in Lower lobes. Heart sounds good, no ectopy RRR. good distal pulses x 4 ext. was unable to assess ignition expert strength and tongue alinement. Pt unable to comm needs, slightly withdrawn affect. No s/sx of distress present.
[2022-03-07] MEDS ORDERED: POTASSIUM CHL 40 MEQ/ D5-1/2NS 1,000 ML IV SCH (08:10)
--- NOTE | 2022-03-07 08:15 | NUR ---
REPORT GIVEN TO OMER JEAN RN. PATIENT STABLE.
--- NOTE | 2022-03-07 08:30 | NUR ---
RESIDENT DR. Ervin CATALAN HERE TO SEE PATIENT AND UPDATED ON STATUS. ORDERS RECEIVED TO INCREASE LANTUS TO 25 UNITS.
--- NOTE | 2022-03-07 08:55 | NUR ---
After administering pts morning meds, pt had just had a BM of semi-loose brown stool (consistancy of melting ice scream), Pt was immediately cleaned with newcheucks Addendum: 03/07/22 at 1155 by Agency 04 RN RN New chucks applied, after thorough pericare provided and sacral pressure wound exposed, cleansed with wound lens cleaner spray,and redressed with optifoam and abd pad. Pts wounds looked reddened and inflamed all over pelvic region, including groin and bottox, honey ointment applied before redressing wounds. Pt is clean and dry and in pos of comfort. all meds administered on time. No s/sxof distress present.
[2022-03-07] MEDS ORDERED: KCL 20 MEQ/WATER INJ PREMIX 200 ML IV SCH ×2 (09:15→21:25)
[2022-03-07] MEDS: FUROSEMIDE 20 MG/2 ML VIAL IVP SCH (09:51)
[2022-03-07] MEDS: MULTIVITAMIN 1 TAB GT SCH (09:53)
[2022-03-07] MEDS: PANTOPRAZOLE 40 MG INJ VIAL IVP SCH ×2 (09:55→20:34)
[2022-03-07] MEDS: METOPROLOL 25 MG TAB PO SCH ×2 (09:55→20:32)
--- NOTE | 2022-03-07 10:00 | NUR ---
DR. BAILEY HERE TO SEE PATIENT AND UPDATED. ORDERS RECEIVED.
--- NOTE | 2022-03-07 10:30 | NUR ---
DR. DELACRUZ HERE TO SEE PATIENT AND UPDATED.
[2022-03-07 11:41] LABS: BASOPHILS % (AUTO) 0.3 % (0.0-2.0); EOSINOPHILS # (AUTO) 0.6 K/uL (0-0.4); EOSINOPHILS % (AUTO) 5.9 % (0.0-4.0); HEMOGLOBIN 9.4 g/dL (12.0-18.0); LYMPHOCYTES # (AUTO) 1.8 K/uL (2.0-11.5); LYMPHOCYTES % (AUTO) 16.4 % (20.5-51.1); MEAN CORPUSCULAR HEMOGLOBIN 27 pg (27-31); MEAN CORPUSCULAR HGB CONC 32 g/dL (33-37); MEAN CORPUSCULAR VOLUME 83.7 fL (80-94); MONOCYTES # (AUTO) 0.9 K/uL (0.8-1.0); MONOCYTES % (AUTO) 8.7 % (1.7-9.3); NEUTROPHILS # (AUTO) 7.3 K/uL (1.8-7.7); NEUTROPHILS % (AUTO) 68.7 % (42.2-75.2); PLATELET COUNT (AUTO) 402 K/uL (140-450); RED BLOOD CELL COUNT(AUTO) 3.47 MIL/uL (4.20-6.10); WHITE BLOOD COUNT (AUTO) 10.7 K/uL (4.8-10.8)
[2022-03-07 12:45] LABS: ANION GAP 10.3 (8-16); CHLORIDE 100 mmol/L (98-107); CREATININE 1.1 mg/dL (0.6-1.3); GLUCOSE 280 mg/dL (74-106); POTASSIUM 3.3 mmol/L (3.5-5.1); SODIUM SERUM 134 mmol/L (136-145); UREA NITROGEN, BLOOD 22 mg/dL (7-18)
--- NOTE | 2022-03-07 12:52 | NUR ---
03/07/22 RD FOLLOW UP COMPLETED PLEASE REFER TO NUTRITION ASSESSMENT UNDER CARE ACTIVITY FOR ESTIMATED NUTRITIONAL NEEDS. 1. CONTINUE GLUCERNA 1.2 WITH A GOAL RATE OF 55 ML/HR TOLERATED -FWF: 150 ML Q6H OR PER MD -START AT 10 ML/HR AND INCREASE BY 10 ML Q4H TOLERATED 2. RECOMMEND ARTUR BID PER RD PROTOCOL -WITH ARTUR BID, PT WILL RECEIVE 82% OF ESTIMATED KCAL AND 100% OF ESTIMATED PROTEIN NEEDS; ADEQUATE 3. RD TO FOLLOW-UP 2-3 DAYS, HIGH RISK ELIAN BOYER RD
[2022-03-07] MEDS ORDERED: INSULIN LANTUS 100 UNITS/ML 10 ML VIAL SUBQ SCH (13:00)
[2022-03-07] MEDS: THERAHONEY GEL 42.5 GM TP SCH (13:17)
--- NOTE | 2022-03-07 15:30 | NUR ---
TF CHANGED TO GLUCERNA 1.2 AT 55ML/HR PER ORDER.
--- NOTE | 2022-03-07 16:00 | NUR ---
BUTTOCK AND SACRAL WOUND CARE COMPLETE. MORPHINE 1MG IV GIVEN FOR PAIN. AMAN JEAN RN ENDORSED CARE.
--- NOTE | 2022-03-07 16:30 | NUR ---
LIQUID SEEDY BROWN STOOL x 3. RECTAL TUBE PLACED TO PROTECT SACRAL AND BUTTOCK WOUNDS.
--- NOTE | 2022-03-07 19:19 | NUR ---
REPORT GIVEN TO BARRETT BURTON. PATIENT STABLE.
--- NOTE | 2022-03-07 19:30 | NUR ---
RECEIVED REPORT FROM THANIA RN DAYSHIFT NURSE AT BEDSIDE FOR CONTINUITY OF CARE, PT IS ON WOUND BED HE IS SITTING UP IN BED;AOX0-1 HOB ELEVATED TO 45%. HE IS A TRACH TO VENT WITH CURRENT SETTINGS FOLLOWS: FI02 28 RR 22 VT 425 PEEP 5 : VITAL SIGNS FOLLOWS: T 98.4 P 75 R 27 B/P 95/55 02 99% PT ALSO HAS A FAY CATHETER INTACT AND DRAINING LIGHT YELLOW CLEAR URINE. PT ALSO HAS A RECTAL BAG WHICH HAS MINIMAL CLEAR LIGHT BROWN DRAINAGE. PT CONTINUES ON HAND MITTS BILATERALLY DUE TO PULLING ON TUBES AND TRACH. PT APPEARS CALM AT THIS TIME. NO INJURY NOTED TO SKIN OR HANDS. ALL ORDERED PRECAUTIONS IN PLACE.
[2022-03-07] MEDS: SIMVASTATIN 40 MG TAB GT SCH (20:34)
--- NOTE | 2022-03-07 21:31 | NUR ---
PT WAS GIVEN SCHEDULED MEDS OF ZOCOR FOR HLD AND PROTONIX GT PROPHYLACTIC. PT EDUCATED BUT UNABLE TO VERBALIZE UNDERSTANDING. LOPRESSOR HELD AT TIME OF ADMINISTRATION BECAUSE OF PARAMETERS (SBP WAS 95). PT WAS TURNED AND REPOSITIONED IN BED. RECTAL TUBE WAS IRRIGATED A SMALL AMOUNT OF SEEDY LIQUID BROWN FECES WAS DRAINED INTO THE BAG. ORAL CARE PROVIDED AT BEDSIDE. CORE MACHINE TENDER MD BAILEY CONTACTED DUE TO PT HAS LOW POTASSIUM OF 3.3 PER PRN ORDER, TO HANG A RECONSTITUTED POTASSIUM WITH LIDOCAINE, DUE TO ONLY A REMOTE PHARMACY AT NIGHT RECEIVED A NEW ORDER FOR X1 K RIDER 40 MEQ. WILL HANG WHEN PHARMACY VERIFIES.
--- NOTE | 2022-03-07 21:58 | NUR ---
Servando RIVERA HUNG AND RUNNING ORDERED.
[2022-03-08] VITALS (11 sets, daily range): BP systolic 98–113; BP diastolic 43–68
[2022-03-08] MEDS: BLOOD GLUCOSE MONITORING 1 DEV DEV FS SCH ×5 (00:27→23:58)
[2022-03-08] MEDS: INSULIN LISPRO SLIDING SCALE 100 UNITS/ML VIAL SUBQ PRN ×2 (00:28→11:26)
--- NOTE | 2022-03-08 00:30 | NUR ---
PT REPOSITIONED IN BED 1 ST BAG OF POTASSIUM BAG COMPLETED. ZOSYN HUNG AT THIS TIME AND RUNNING ORDERED. PT FINGERSTICK IS 155 HE WAS GIVEN 2 UNITS OF HUMALOG COVERAGE. PER S/S. RT CALLED DUE TO PT 02 DIPPING. FI02 BUMPED UP TO 45WILL CONTINUE TO MONITOR. V/S FOLLOWS: T 98.6 P 75 R 24 B/P 111/52 02 100% WITH CURRENT VENT SETTINGS. ALL ORDERED PRECAUTIONS IN PLACE.
[2022-03-08] MEDS: PIPERACILLIN/TAZOBACTAM 2.25 GM in DEXTROSE 5% 50 ML IV SCH ×4 (00:38→17:23)
--- NOTE | 2022-03-08 04:00 | NUR ---
PT WAS TURNED, CLEANED AND REPOSITIONED IN BED. WOUNDS CLEANED AND DRESSED. RT WAS HERE VENT SETTINGS MOVED TO FI02 35. ALL ORDERED PRECAUTIONS IN PLACE.
[2022-03-08 05:46] LABS: CARBON DIOXIDE 29.1 mmol/L (21-32); CHLORIDE 101 mmol/L (98-107); GLUCOSE 143 mg/dL (74-106); POTASSIUM 4.1 mmol/L (3.5-5.1); SODIUM SERUM 135 mmol/L (136-145); UREA NITROGEN, BLOOD 30 mg/dL (7-18)
[2022-03-08 06:01] LABS: BASOPHILS # (AUTO) 0.1 K/uL (0.00-0.22)
[2022-03-08 06:03] LABS: BASOPHILS % (AUTO) 1.2 % (0.0-2.0); EOSINOPHILS % (AUTO) 8.1 % (0.0-4.0); HEMATOCRIT 26.3 % (36-52); HEMOGLOBIN 8.8 g/dL (12.0-18.0); LYMPHOCYTES # (AUTO) 2.5 K/uL (2.0-11.5); MEAN CORPUSCULAR HEMOGLOBIN 28 pg (27-31); MEAN CORPUSCULAR HGB CONC 34 g/dL (33-37); MONOCYTES # (AUTO) 0.8 K/uL (0.8-1.0); MONOCYTES % (AUTO) 6.7 % (1.7-9.3); NEUTROPHILS # (AUTO) 7.9 K/uL (1.8-7.7); PLATELET COUNT (AUTO) 543 K/uL (140-450); RED BLOOD CELL COUNT(AUTO) 3.13 MIL/uL (4.20-6.10); RED CELL DISTRIBUTION WIDTH 17.7 % (11.6-13.7); WHITE BLOOD COUNT (AUTO) 12.3 K/uL (4.8-10.8)
[2022-03-08] MEDS: Z-GUARD PASTE TP SCH ×2 (06:03→13:51)
[2022-03-08] MEDS: MIDODRINE 5 MG TAB PO SCH ×3 (06:13→18:13)
--- NOTE | 2022-03-08 06:30 | NUR ---
ZOSYN HUNG AND RUNNING ORDERED. PT FINGERSTICK IS 145, NO COVERAGE NEEDED. MIDODRINE GIVEN B/P 97/45. G TUBE FEEDING RUNNING ORDERED. RECTAL TUBE IN PLACE AND DRAINED 150MLS OF LIQUID. ALL ORDERED PRECAUTIONS IN PLACE.
--- NOTE | 2022-03-08 07:15 | NUR ---
Received report from Shruthi HYDE and assumed care of patient. Per Shruthi HYDE, the patient has been downgraded to Tele and is awaiting bed assignment for transfer. Patient received with D5 1/2 NS at 50 ml/hr infusing to the R upper arm PICC line, tube feeding Glucerna 1.2 @ 55 ml/hr with 150ml water q 6 hrs. Patient is trach to vent with vent settings @ A/C FiO2 35, VT 425, and Peep 5. Patient has a Thibodeaux catheter with yellow urine and mild sediment noted, rectal tube in place draining liquid stool. NSR on the monitor.
--- NOTE | 2022-03-08 08:11 | NUR ---
Attempted to endorse report, was advised by Ruddy HYDE that he would call me back.
--- NOTE | 2022-03-08 08:18 | NUR ---
Ruddy HYDE called back to let me know Mary HYDE would receive report from this patient, but she was with a patient at this time and will call me back.
--- NOTE | 2022-03-08 08:27 | NUR ---
Mary RN called back. Report endorsed to Mary to transfer care of patient and end my care. All questions answered. Patient resting comfortably, breathing even and unlabored on the vent, NSR on the monitor, no signs of acute distress noted.
[2022-03-08] MEDS: FUROSEMIDE 20 MG/2 ML VIAL IVP SCH (09:00)
[2022-03-08] MEDS: METOPROLOL 25 MG TAB PO SCH ×2 (09:00→21:00)
--- NOTE | 2022-03-08 09:00 | NUR ---
PT ARRIVED TO THE UNIT VIA BED. PT IS ON WOUND CARE BED. SCDS ARE IN PLACE. MITTENS IN PLACE BILAT HANDS. TRACH TO VENT WITH BREATHING UNLABORED. PT TRACKS WITH EYES BUT DOES NOT ATTEMPT TO ANSWER QUESTIONS. PICC LINE IS INTACT IN THE LEFT UPPER ARM. FAY CATH IN PLACE DRAINING URINE. RECTAL TUBE ALSO IN PLACE WITH LOOSE STOOL, DARK BROWN. PT IS STABLE. NO DISTRESS NOTED. WILL CONTINUE TO MONITOR. PLAN OF CARE DISCUSSED WITH PEELER OPERATOR.
[2022-03-08] MEDS: MULTIVITAMIN 1 TAB GT SCH (10:06)
[2022-03-08] MEDS: PANTOPRAZOLE 40 MG INJ VIAL IVP SCH ×2 (10:06→21:54)
[2022-03-08] MEDS: INSULIN LANTUS 100 UNITS/ML 10 ML VIAL SUBQ SCH (10:07)
--- NOTE | 2022-03-08 12:00 | NUR ---
ROUNDED ON PT. HE IS STABLE. NO RESPIRATORY DISTRESS NOTED. TRACH TO VENT WITH O2 SAT 100%. MITTENS IN PLACE PT IS TRYING TO PULL AT TRACH. SCDS IN PLACE. VS ARE STABLE. WILL MONITOR.
[2022-03-08] MEDS: THERAHONEY GEL 42.5 GM TP SCH (13:51)
--- NOTE | 2022-03-08 14:30 | NUR ---
SPUTUM WAS COLLECTED THROUGH TRACH BY GABE ZAPIEN. SENT TO LAB FOR ANALYSIS.
--- NOTE | 2022-03-08 15:00 | NUR ---
PT WAS CHANGED AND REPOSITIONED. BED BATH PROVIDED. ALL WOUND DRESSINGS WERE CHANGED AND WOUNDS CLEANSED. PT TOLERATED THIS WELL. DENIED PAIN. MITTENS IN PLACE. TRACH TO VENT WITH BREATHING UNLABORED. SR ON BEDSIDE MONITOR. O2 SAT IS 98%. WILL CONTINUE TO MONITOR.
--- NOTE | 2022-03-08 15:10 | NUR ---
03/08/22 RD FOLLOW UP COMPLETED PLEASE REFER TO NUTRITION ASSESSMENT UNDER CARE ACTIVITY FOR ESTIMATED NUTRITIONAL NEEDS. 1. CONTINUE GLUCERNA 1.2 @ 55 ML/HR TOLERATED -FWF: 150 ML Q6H OR PER MD -START AT 10 ML/HR AND INCREASE BY 10 ML Q4H TOLERATED 2. CONTINUE ARTUR BID PER RD PROTOCOL -WITH ARTUR BID, PT WILL RECEIVE 82% OF ESTIMATED KCAL AND 100% OF ESTIMATED PROTEIN NEEDS; ADEQUATE 3. RD TO FOLLOW-UP 2-3 DAYS, HIGH RISK ELIAN BOYER RD
[2022-03-08] MEDS: DEXT 5% / NACL 0.45% 1,000 ML IV SCH (15:53)
--- NOTE | 2022-03-08 17:01 | NUR ---
URINE CULTURE COLLECTED FROM FAY CATH PORT. SENT TO LAB FOR TESTING.
--- NOTE | 2022-03-08 19:30 | NUR ---
ENDORSED PT TO OIL WELL LOGGING ENGINEER NURSE FOR CONTINUITY OF CARE. PT IS STABLE. PLAN OF CARE DISCUSSED.
[2022-03-08] MEDS: MORPHINE SULFATE 2 MG/ML SYR IVP PRN (21:10)
[2022-03-08] MEDS: SIMVASTATIN 40 MG TAB GT SCH (21:54)
--- NOTE | 2022-03-08 23:09 | NUR ---
PATIENT NOT ALERT NON VERBAL TRACH TO VENT RATE 22, TV 425, FI02 28%, PEEP 5 SAT 99%. LUNGS DIMINISH. HAS GT INFUSING GLUCERNA 55 HOUR WATER FLUSH 150 CC EVERY SIX HOURS. NO RESIDUAL NOTED PATIENT HAS F/C DRAINING YELLOW URINE TO DAY H/H 8.3 IVF IN FUSING D51/2NS AT 50 HOUR. . 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 PATIENT HAS BLOOD SUGARS EVERY SIX HOURS 0000, 0600.MORPHINE GIVEN FOR RESTLESS AND PULLING AT TUBES. PATIENT HAS MITTENS ON NO DISTRESS NOTED. PATIENT HAS A RECTAL TUBE DRAINING GREEN BROWN STOOL LIQUID.
[2022-03-09] VITALS (7 sets, daily range): BP systolic 112–132; BP diastolic 39–53
[2022-03-09] MEDS: PIPERACILLIN/TAZOBACTAM 2.25 GM in DEXTROSE 5% 50 ML IV SCH ×4 (00:01→17:47)
[2022-03-09] MEDS: INSULIN LISPRO SLIDING SCALE 100 UNITS/ML VIAL SUBQ PRN (00:02)
[2022-03-09] MEDS: Z-GUARD PASTE TP SCH ×2 (01:00→13:00)
[2022-03-09] MEDS: BLOOD GLUCOSE MONITORING 1 DEV DEV FS SCH ×3 (06:00→18:33)
--- NOTE | 2022-03-09 06:19 | NUR ---
PATIENT BLOOD SUGAR 0000 142 COVERED WITH 2 UNITS HUMALOG. THIS A.M BLOOD SUGAR 105 NO INSULIN GIVEN.
[2022-03-09] MEDS: MIDODRINE 5 MG TAB PO SCH ×3 (06:42→18:07)
--- NOTE | 2022-03-09 07:20 | NUR ---
PT IS AOX2 AND NO S/S OF DISTRESS NOTED. BREATHING IS EVEN AND UNLABORED. DENIES PAIN. ON TRACH TO VENT, PRVC, RR22, 425TV, PEEP 5, 30%FIO2. PT IS STABLE.
--- NOTE | 2022-03-09 07:30 | NUR ---
RECEIVED PATIENT ON PRVC RR 22, 425, 5, 30%. PATIENT WAS AWAKE AND RESTING. ALARMS ARE SET APPROPRIATELY,VENT PLUGGED INTO RED OUTLET AND AMBU BAG IS PRESENT.
[2022-03-09] MEDS: METOPROLOL 25 MG TAB PO SCH (09:00)
[2022-03-09] MEDS: INSULIN LANTUS 100 UNITS/ML 10 ML VIAL SUBQ SCH (09:56)
[2022-03-09] MEDS: MULTIVITAMIN 1 TAB GT SCH (10:01)
[2022-03-09] MEDS: FUROSEMIDE 20 MG/2 ML VIAL IVP SCH (10:02)
[2022-03-09] MEDS: PANTOPRAZOLE 40 MG INJ VIAL IVP SCH (10:02)
[2022-03-09] MEDS ORDERED: IV zosyn IV (10:40)
[2022-03-09] MEDS ORDERED: INSU100S22 SUBQ (10:40)
[2022-03-09] MEDS: THERAHONEY GEL 42.5 GM TP SCH (13:00)
[2022-03-09] MEDS: DEXT 5% / NACL 0.45% 1,000 ML IV SCH (13:57)
--- NOTE | 2022-03-09 19:50 | NUR ---
RECEIVED TRANSFER OF CARE REPORT FROM CHIRAG DONALDSON RN FOR CONTINUITY OF CARE. PATIENT IS AWAKE AND STABLE. A&OX0 PATIENT IS APHASIC. AROUSABLE TO TOUCH. PATIENT HAS A TRACH CONNECTED TO VENT WITH FIO2 SETTING AT 28%. RESPIRATIONS EVEN AND UNLABORED WITH NO APPARENT S/SX OF ACUTE DISTRESS. PATIENT HAS A RUIZ MIDLINE PATENT/INTACT WITH IVF RUNNING. PATIENT HAS A GT, F/C AND RECTAL TUBE. PATIENT HAS SACRAL WOUND AND CONTACT PRECAUTION FOR MDRO. PROPER SIGNS AND PPE OBSERVED. PATIENT IS INCONTINENT OF VOID AND BM. POC UPDATED. ALL SAFETY MEASURES IN PLACE. BED IN LOW/LOCKED POSITION. CALL LIGHT WITHIN REACH. WILL CONTINUE TO MONITOR.
--- NOTE | 2022-03-09 20:18 | NUR ---
TRANSPORT ARRIVED TO UNIT. REPORT GIVEN TO EMT. PATIENT WILL BE TRANSFERRED TO [facility] ROOM 3C. REPORT GIVEN TO FACILITY BY ANJALI LUGO. DISCHARGE PAPERS SIGNED, DISCHARGE PACKET GIVEN TO TRANSPORT TEAM. SANTOS RT DID FINAL RESPIRATORY ASSESSMENT. LEGAL CASHIER REMOVED. ID BAND REMOVED. PATIENT STABLE UPON TRANSFER.
== END 2022-03-09 20:40 | DRG 853 ==
LOC: MED 23:55 → MTU 03-02 03:23 → MIC 03-02 20:15 → MMU 03-08 08:57 → MTU 03-08 09:50
PROVIDERS: ADMIT Hospitalist; ATTEND Hospitalist
PROC: 30233N1 Transfusion of Nonautologous Red Blood Cells into Peripheral Vein, Percutaneous Approach (ICD-10-PCS; 2022-03-02)
PROC: 0JB70ZZ Excision of Back Subcutaneous Tissue and Fascia, Open Approach (ICD-10-PCS; principal; 2022-03-04)
PROC: 5A1955Z Respiratory Ventilation, Greater than 96 Consecutive Hours (ICD-10-PCS; 2022-03-04)
PROC: 0B21XFZ Change Tracheostomy Device in Trachea, External Approach (ICD-10-PCS; 2022-03-04)
PROC: 0W993ZZ Drainage of Right Pleural Cavity, Percutaneous Approach (ICD-10-PCS; 2022-03-06)
DX: A41.9 Sepsis, unspecified organism (principal); L89.154 Pressure ulcer of sacral region, stage 4; R65.21 Severe sepsis with septic shock; J69.0 Pneumonitis due to inhalation of food and vomit; J96.20 Acute and chronic respiratory failure, unspecified whether with hypoxia or hypercapnia; E43 Unspecified severe protein-calorie malnutrition; G93.41 Metabolic encephalopathy; R53.2 Functional quadriplegia; N17.0 Acute kidney failure with tubular necrosis; E87.1 Hypo-osmolality and hyponatremia; E87.0 Hyperosmolality and hypernatremia; N39.0 Urinary tract infection, site not specified; E11.52 Type 2 diabetes mellitus with diabetic peripheral angiopathy with gangrene; D62 Acute posthemorrhagic anemia; M86.9 Osteomyelitis, unspecified; M48.54XA Collapsed vertebra, not elsewhere classified, thoracic region, initial encounter for fracture; I13.0 Hypertensive heart and chronic kidney disease with heart failure and stage 1 through stage 4 chronic kidney disease, or unspecified chronic kidney disease; L97.419 Non-pressure chronic ulcer of right heel and midfoot with unspecified severity; E11.621 Type 2 diabetes mellitus with foot ulcer; D63.8 Anemia in other chronic diseases classified elsewhere; R13.10 Dysphagia, unspecified; I70.0 Atherosclerosis of aorta; K21.9 Gastro-esophageal reflux disease without esophagitis; I71.9 Aortic aneurysm of unspecified site, without rupture; M48.00 Spinal stenosis, site unspecified; E11.40 Type 2 diabetes mellitus with diabetic neuropathy, unspecified; E86.0 Dehydration; K74.60 Unspecified cirrhosis of liver; K57.30 Diverticulosis of large intestine without perforation or abscess without bleeding; E11.65 Type 2 diabetes mellitus with hyperglycemia; E11.69 Type 2 diabetes mellitus with other specified complication; Z20.822 Contact with and (suspected) exposure to COVID-19; K76.9 Liver disease, unspecified; B95.62 Methicillin resistant Staphylococcus aureus infection as the cause of diseases classified elsewhere; I50.9 Heart failure, unspecified; N18.9 Chronic kidney disease, unspecified; E11.22 Type 2 diabetes mellitus with diabetic chronic kidney disease; Z93.0 Tracheostomy status; Z90.49 Acquired absence of other specified parts of digestive tract; Z86.14 Personal history of Methicillin resistant Staphylococcus aureus infection; Z74.01 Bed confinement status; Z79.4 Long term (current) use of insulin; Z79.82 Long term (current) use of aspirin; Z79.899 Other long term (current) drug therapy; Z68.26 Body mass index [BMI] 26.0-26.9, adult
CPT/HCPCS: 36415; 71045; 76604; 76942; 80048; 80053; 80202; 81001; 82140; 82272; 82948; 83036; 83605; 83735; 84100; 85025; 85610; 85730; 86886; 86900; 86901; 86920; 87040; 87070; 87075; 87081; 87086; 87205; 94003; 96365; 96367; 99291; C9113; G0482; J0696; J1815; J1885; J1940; J2001; J2060; J2270; J2543; J3370; J3480; J3490; J7030; J7060; P9016; Q0092

== ENCOUNTER 2022-03-19 21:24 | Inpatient (IN) | payer MEDICARE, MEDICAID ==
[~2022-03-19] VITALS: Ht 175.3 cm; Wt 68.9 kg
[~2022-03-19 21:24] MED LIST changes: -ACET-5629 PO; +ALBU6.7H IH; -ARGI4.5P3 PO; +ASPI-1822 GT; -AZIT250T4 PO; -BANA1POW PO; +BISA-213 RC; +CHOL200072 GT; +DIPH25TA53 GT; +DOCU-299 GT; -DOCU250S72 PO; +FAMO-90 GT; -FERR-212 PO; -INSU100S5; +IPRA12.9 IH; +IV zosyn IV; +LORA-476 GT; +LORA10TA19 GT; -LORA10TA19 PO; +MAGN400S60 GT; +SIMV-33 GT; +SLIDE SUBQ; +ZINC220T3 GT; +[UNRECOGNIZED DRUG - CODE] GT
[2022-03-19 21:25] VITALS: BP 109/53
[2022-03-19 21:26] VITALS: BP 109/53
[2022-03-19] MEDS ORDERED: NACL 0.9% 0 ML IV STA (21:28)
[2022-03-19] MEDS ORDERED: BLOOD GLUCOSE MONITORING 1 DEV DEV FS STA (21:28)
[2022-03-19] MEDS ORDERED: PROSTAT SUGARFREE GT (21:51)
[2022-03-19 21:56] LABS: BASOPHILS # (AUTO) 0.1 K/uL (0.00-0.22); BASOPHILS % (AUTO) 0.7 % (0.0-2.0); EOSINOPHILS # (AUTO) 0.4 K/uL (0-0.4); HEMATOCRIT 24.6 % (36-52); HEMOGLOBIN 7.9 g/dL (12.0-18.0); LYMPHOCYTES # (AUTO) 1.4 K/uL (2.0-11.5); LYMPHOCYTES % (AUTO) 19.8 % (20.5-51.1); MEAN CORPUSCULAR HEMOGLOBIN 27 pg (27-31); MEAN CORPUSCULAR HGB CONC 32 g/dL (33-37); MEAN CORPUSCULAR VOLUME 83.5 fL (80-94); MONOCYTES # (AUTO) 0.5 K/uL (0.8-1.0); MONOCYTES % (AUTO) 7.1 % (1.7-9.3); NEUTROPHILS # (AUTO) 4.8 K/uL (1.8-7.7); NEUTROPHILS % (AUTO) 66.4 % (42.2-75.2); PLATELET COUNT (AUTO) 186 K/uL (140-450); RED BLOOD CELL COUNT(AUTO) 2.94 MIL/uL (4.20-6.10); WHITE BLOOD COUNT (AUTO) 7.2 K/uL (4.8-10.8)
[2022-03-19 22:14] LABS: PROTHROMBIN TIME 11.3 secs (10.8-13.4)
[2022-03-19 22:16] LABS: APPEARANCE,URINE CLEAR (CLEAR); BILIRUBIN,URINE NEGATIVE (NEGATIVE); BLOOD, URINE 3+ (NEGATIVE); COLOR,URINE YELLOW (YELLOW); LEUKOCYTE ESTERASE ,URINE 3+ (NEGATIVE); NITRITE, URINE NEGATIVE (NEGATIVE); UGLUCOSE NEGATIVE (NEGATIVE)
[2022-03-19 22:16] LABS: ALBUMIN 1.4 g/dL (3.4-5.0); ANION GAP 8.8 (8-16); ASPARTATE AMINOTRANSFERASE 44 U/L (15-37); CHLORIDE 99 mmol/L (98-107); CREATININE 0.8 mg/dL (0.6-1.3); GLUCOSE 150 mg/dL (74-106); POTASSIUM 4.8 mmol/L (3.5-5.1); SODIUM SERUM 133 mmol/L (136-145); TOTAL BILIRUBIN 0.3 mg/dL (0.0-1.0); UREA NITROGEN, BLOOD 31 mg/dL (7-18)
[2022-03-19 22:45] LABS: RBC,URINE 11-20 (MOD) /HPF (0-5); URINE AMORPHOUS URATE 3+ /HPF (None Seen); WBC,URINE TOO MANY TO COUNT /HPF (0-5)
[2022-03-20] MEDS ORDERED: MEROPENEM 1,000 MG in NACL 0.9% 50 ML IV ONE ×2
[2022-03-20] MEDS ORDERED: MEROPENEM 1,000 MG VIAL IV ONE (00:09)
[2022-03-20 00:35] VITALS: BP 112/58
[2022-03-20 08:00] VITALS: BP 102/59
[2022-03-20] MEDS ORDERED: AZITHROMYCIN 500 MG in DEXTROSE 5% 250 ML IV SCH (09:00)
[2022-03-20] MEDS ORDERED: MAG SULF 2000 MG/WATER PREMIX 50 ML IV PRN (09:10)
[2022-03-20] MEDS ORDERED: MORPHINE SULFATE 2 MG/ML SYR IVP PRN (09:15)
[2022-03-20] MEDS ORDERED: HYDROcodone/APAP 5/325 MG 1 TAB TAB GT PRN (09:15)
[2022-03-20] MEDS ORDERED: LORazepam 2 MG/ML VIAL IM/IVP PRN (09:15)
[2022-03-20] MEDS ORDERED: ACETAMINOPHEN 325 MG TAB GT PRN (09:15)
[2022-03-20] MEDS ORDERED: ZOLPIDEM 5 MG TAB GT PRN (09:15)
[2022-03-20] MEDS ORDERED: VANCOMYCIN PER PHARMACY MC PRN (09:15)
[2022-03-20] MEDS ORDERED: ONDANSETRON 4 MG/2 ML VIAL IM/IVP PRN (09:15)
[2022-03-20] MEDS ORDERED: DOCUSATE 100 MG/10 ML UDC GT PRN (09:25)
[2022-03-20] MEDS ORDERED: POTASSIUM CHLORIDE 20% 40 MEQ/15 ML UDC GT PRN (09:30)
[2022-03-20] MEDS ORDERED: DEXTROSE 50% 50 ML SYR IVP PRN (09:35)
[2022-03-20] MEDS ORDERED: INSULIN LISPRO SLIDING SCALE 100 UNITS/ML VIAL SUBQ PRN (09:35)
[2022-03-20] MEDS ORDERED: VANCOMYCIN 1,000 MG in DEXTROSE 5% 250 ML IV SCH (10:00)
[2022-03-20] MEDS: NACL 0.9% 1,000 ML IV SCH (10:04)
[2022-03-20 10:38] LABS: BASOPHILS % (AUTO) 0.2 % (0.0-2.0); EOSINOPHILS # (AUTO) 0.9 K/uL (0-0.4); EOSINOPHILS % (AUTO) 12.4 % (0.0-4.0); HEMATOCRIT 23.6 % (36-52); HEMOGLOBIN 7.8 g/dL (12.0-18.0); LYMPHOCYTES # (AUTO) 1.5 K/uL (2.0-11.5); LYMPHOCYTES % (AUTO) 20.4 % (20.5-51.1); MEAN CORPUSCULAR HEMOGLOBIN 27 pg (27-31); MEAN CORPUSCULAR HGB CONC 33 g/dL (33-37); MEAN CORPUSCULAR VOLUME 83.1 fL (80-94); MONOCYTES # (AUTO) 0.6 K/uL (0.8-1.0); MONOCYTES % (AUTO) 8.2 % (1.7-9.3); NEUTROPHILS # (AUTO) 4.3 K/uL (1.8-7.7); NEUTROPHILS % (AUTO) 58.8 % (42.2-75.2); PLATELET COUNT (AUTO) 176 K/uL (140-450); RED BLOOD CELL COUNT(AUTO) 2.84 MIL/uL (4.20-6.10); RED CELL DISTRIBUTION WIDTH 18.1 % (11.6-13.7); WHITE BLOOD COUNT (AUTO) 7.3 K/uL (4.8-10.8)
[2022-03-20 10:57] LABS: ANION GAP 8.4 (8-16); CARBON DIOXIDE 28.4 mmol/L (21-32); CHLORIDE 101 mmol/L (98-107); CREATININE 0.7 mg/dL (0.6-1.3); GLUCOSE 137 mg/dL (74-106); POTASSIUM 3.8 mmol/L (3.5-5.1); SODIUM SERUM 134 mmol/L (136-145); UREA NITROGEN, BLOOD 27 mg/dL (7-18)
[2022-03-20 11:03] LABS: BARBITURATE, URINE NEGATIVE ng/ml (NEG <=200)
[2022-03-20 11:04] LABS: BENZODIAZEPINE, URINE NEGATIVE ng/mL (NEG <=200); CANNABINOID, URINE NEGATIVE ng/mL (NEG <=50); COCAINE, URINE NEGATIVE ng/mL (NEG <=300); OPIATE, URINE NEGATIVE ng/mL (NEG <=2000); PHENCYCLIDINE SCREEN,URINE NEGATIVE ng/mL (NEG <=25)
[2022-03-20 11:10] LABS: CHOL/HDL RATIO 3.2 (1-4.5); THYROID STIMULATING HORMONE 1.73 uIU/mL (0.34-3.74)
[2022-03-20] MEDS: BLOOD GLUCOSE MONITORING 1 DEV DEV FS SCH ×3 (11:30→21:41)
[2022-03-20 12:00] VITALS: BP 123/63
[2022-03-20] MEDS ORDERED: PROSTAT SUGARFREE GT SCH (13:00)
[2022-03-20] MEDS: PIPERACILLIN/TAZOBACTAM 3.375 GM in DEXTROSE 5% 50 ML IV SCH ×2 (13:30→21:24)
[2022-03-20 16:00] VITALS: BP 151/65
[2022-03-20] MEDS ORDERED: FOAM DRESSING TP SCH (17:00)
[2022-03-20 20:00] VITALS: BP 107/59
[2022-03-20] MEDS: INSULIN LANTUS 100 UNITS/ML 10 ML VIAL SUBQ SCH (21:00)
[2022-03-20] MEDS ORDERED: INSULIN GLARGINE HUM REC ANLOG 25 UNIT SUBQ SCH (21:00)
[2022-03-20] MEDS: METOPROLOL 25 MG TAB GT SCH (21:22)
[2022-03-20] MEDS: FAMOTIDINE 20 MG TAB GT SCH (21:23)
[2022-03-20] MEDS: SIMVASTATIN 40 MG TAB GT SCH (21:24)
[2022-03-21] VITALS (8 sets, daily range): BP systolic 100–125; BP diastolic 52–64
[2022-03-21] MEDS: MENTHOL/ZINC OXIDE 113 GM TUBE TP SCH ×2 (01:00→13:51)
[2022-03-21] MEDS: NACL 0.9% 1,000 ML IV SCH ×2 (01:55→18:47)
[2022-03-21] MEDS: PIPERACILLIN/TAZOBACTAM 3.375 GM in DEXTROSE 5% 50 ML IV SCH ×3 (05:08→20:42)
[2022-03-21 05:42] LABS: BASOPHILS % (AUTO) 0.1 % (0.0-2.0); EOSINOPHILS # (AUTO) 1.8 K/uL (0-0.4); EOSINOPHILS % (AUTO) 26.8 % (0.0-4.0); HEMATOCRIT 24.6 % (36-52); HEMOGLOBIN 8.1 g/dL (12.0-18.0); LYMPHOCYTES # (AUTO) 0.9 K/uL (2.0-11.5); LYMPHOCYTES % (AUTO) 12.9 % (20.5-51.1); MEAN CORPUSCULAR HEMOGLOBIN 27 pg (27-31); MEAN CORPUSCULAR HGB CONC 33 g/dL (33-37); MEAN CORPUSCULAR VOLUME 82.8 fL (80-94); MONOCYTES # (AUTO) 0.4 K/uL (0.8-1.0); MONOCYTES % (AUTO) 6.4 % (1.7-9.3); NEUTROPHILS # (AUTO) 3.7 K/uL (1.8-7.7); NEUTROPHILS % (AUTO) 53.8 % (42.2-75.2); PLATELET COUNT (AUTO) 170 K/uL (140-450); RED BLOOD CELL COUNT(AUTO) 2.98 MIL/uL (4.20-6.10); RED CELL DISTRIBUTION WIDTH 18.4 % (11.6-13.7); WHITE BLOOD COUNT (AUTO) 6.9 K/uL (4.8-10.8)
[2022-03-21 06:16] LABS: ANION GAP 10.3 (8-16); CARBON DIOXIDE 26.1 mmol/L (21-32); CHLORIDE 103 mmol/L (98-107); CREATININE 0.8 mg/dL (0.6-1.3); GLUCOSE 92 mg/dL (74-106); POTASSIUM 3.4 mmol/L (3.5-5.1); SODIUM SERUM 136 mmol/L (136-145); UREA NITROGEN, BLOOD 21 mg/dL (7-18)
[2022-03-21 06:26] LABS: MAGNESIUM 1.7 mg/dL (1.8-2.4); PHOSPHORUS 3.5 mg/dL (2.5-4.9)
[2022-03-21] MEDS: BLOOD GLUCOSE MONITORING 1 DEV DEV FS SCH ×4 (06:36→20:38)
[2022-03-21] MEDS: METOPROLOL 25 MG TAB GT SCH ×2 (08:23→20:41)
[2022-03-21] MEDS: FAMOTIDINE 20 MG TAB GT SCH ×2 (08:23→20:40)
[2022-03-21] MEDS ORDERED: LORATADINE 10 MG TAB GT SCH (09:00)
[2022-03-21] MEDS ORDERED: ASPIRIN 81 MG TAB.CHEW GT SCH (09:00)
[2022-03-21] MEDS: SIMVASTATIN 40 MG TAB GT SCH (20:40)
[2022-03-21] MEDS: INSULIN LANTUS 100 UNITS/ML 10 ML VIAL SUBQ SCH (21:00)
[2022-03-21] MEDS ORDERED: DOCU150L25 GT (23:54)
[2022-03-21] MEDS ORDERED: VANC250C9 IV (23:54)
[2022-03-21] MEDS ORDERED: LANTUS SUBQ (23:54)
[2022-03-21] MEDS ORDERED: ZOS3.375PM IV (23:54)
[2022-03-23] MEDS ORDERED: ALGINATE DRESSING MC SCH (13:00)
== END 2022-03-21 23:30 | disposition short-term general hospital (02) | DRG 871 ==
LOC: MED 21:24 → MTU 03-20 06:12 → MMU 03-20 06:27
PROC: 5A1945Z Respiratory Ventilation, 24-96 Consecutive Hours (ICD-10-PCS; principal; 2022-03-20)
DX: A41.9 Sepsis, unspecified organism (principal); J69.0 Pneumonitis due to inhalation of food and vomit; E43 Unspecified severe protein-calorie malnutrition; N39.0 Urinary tract infection, site not specified; J96.10 Chronic respiratory failure, unspecified whether with hypoxia or hypercapnia; E87.1 Hypo-osmolality and hyponatremia; E11.9 Type 2 diabetes mellitus without complications; J30.9 Allergic rhinitis, unspecified; I11.9 Hypertensive heart disease without heart failure; R13.10 Dysphagia, unspecified; E78.5 Hyperlipidemia, unspecified; Z20.822 Contact with and (suspected) exposure to COVID-19; L89.159 Pressure ulcer of sacral region, unspecified stage; I25.10 Atherosclerotic heart disease of native coronary artery without angina pectoris; K21.9 Gastro-esophageal reflux disease without esophagitis; Z90.49 Acquired absence of other specified parts of digestive tract; Z93.0 Tracheostomy status; Z88.8 Allergy status to other drugs, medicaments and biological substances; Z79.82 Long term (current) use of aspirin; Z79.899 Other long term (current) drug therapy; Z79.4 Long term (current) use of insulin; Z93.1 Gastrostomy status; Z68.22 Body mass index [BMI] 22.0-22.9, adult
CPT/HCPCS: 36415; 71045; 72110; 80048; 80053; 80202; 80305; 81001; 82150; 82948; 83036; 83605; 83690; 83735; 83880; 84100; 84134; 84443; 85025; 85610; 85730; 87040; 87070; 87081; 87086; 93005; 94003; 96361; 96365; 99291; 99292; J0456; J1815; J2185; J2543; J3370; J3475; J7030; J7060; Q0092

== ENCOUNTER 2022-03-28 20:39 | Emergency (ER) | payer MEDICARE, MEDICAID ==
[~2022-03-28] VITALS: Ht 170.2 cm; Wt 68.5 kg
[2022-03-28 20:39] VITALS: BP 107/53
[~2022-03-28 20:39] MED LIST changes: -ALBU6.7H IH; -BISA-213 RC; -CHOL200072 GT; -DIPH25TA53 GT; -DOCU-299 GT; +DOCU150L25 GT; -IPRA12.9 IH; -IV zosyn IV; +LANTUS SUBQ; -LORA-476 GT; -MAGN400S60 GT; +PROSTAT SUGARFREE GT; +VANC250C9 IV; +ZOS3.375PM IV; -[UNRECOGNIZED DRUG - CODE] GT
--- NOTE | 2022-03-28 20:41 | NUR ---
PT BROUGHT TO BED 1 VIA RAMIRO
[2022-03-28] MEDS ORDERED: NACL 0.9% 1,000 ML IV ONE (20:50)
--- NOTE | 2022-03-28 20:51 | NUR ---
placed patient on the monitor, safety measures are in place, and will continue to monitor patient. and applied cold packs to the stomach and armpits. patient has fever of 101.0 rectally.
--- NOTE | 2022-03-28 21:20 | NUR ---
SWABBED PATIENT FOR COVID. GIVEN TO LAB.
[2022-03-28 21:34] LABS: BASOPHILS % (AUTO) 0.3 % (0.0-2.0); EOSINOPHILS # (AUTO) 1.7 K/uL (0-0.4); EOSINOPHILS % (AUTO) 22.2 % (0.0-4.0); HEMATOCRIT 23.7 % (36-52); HEMOGLOBIN 7.6 g/dL (12.0-18.0); LYMPHOCYTES # (AUTO) 1.4 K/uL (2.0-11.5); LYMPHOCYTES % (AUTO) 18.2 % (20.5-51.1); MEAN CORPUSCULAR HEMOGLOBIN 27 pg (27-31); MEAN CORPUSCULAR HGB CONC 32 g/dL (33-37); MEAN CORPUSCULAR VOLUME 84.4 fL (80-94); MONOCYTES # (AUTO) 0.7 K/uL (0.8-1.0); MONOCYTES % (AUTO) 9.1 % (1.7-9.3); NEUTROPHILS # (AUTO) 3.9 K/uL (1.8-7.7); NEUTROPHILS % (AUTO) 50.2 % (42.2-75.2); PLATELET COUNT (AUTO) 310 K/uL (140-450); RED BLOOD CELL COUNT(AUTO) 2.81 MIL/uL (4.20-6.10); RED CELL DISTRIBUTION WIDTH 18.6 % (11.6-13.7); WHITE BLOOD COUNT (AUTO) 7.7 K/uL (4.8-10.8)
[2022-03-28 22:11] LABS: ALBUMIN 1.4 g/dL (3.4-5.0); ANION GAP 8.3 (8-16); ASPARTATE AMINOTRANSFERASE 24 U/L (15-37); CARBON DIOXIDE 30.7 mmol/L (21-32); CHLORIDE 99 mmol/L (98-107); CREATININE 0.9 mg/dL (0.6-1.3); GLUCOSE 117 mg/dL (74-106); SODIUM SERUM 134 mmol/L (136-145); TOTAL BILIRUBIN 0.2 mg/dL (0.0-1.0); UREA NITROGEN, BLOOD 21 mg/dL (7-18)
[2022-03-28] MEDS ORDERED: GENTAMICIN IV ONE (23:35)
[2022-03-28] MEDS ORDERED: DEXTROSE 5% IV ONE (23:35)
--- NOTE | 2022-03-28 23:45 | NUR ---
PERICARE DONE FOR PATIENT. PATIENT TOLERATED WELL. SAFETY MEASURES ARE IN PLACE, PLACED ON MONITOR AND WILL CONTINUE TO MONITOR PATIENT.
--- NOTE | 2022-03-28 23:45 | NUR ---
Patient noted to have existing wounds upon arrival to ER. Photos taken of wound and placed in chart. Wound covered with dressing. Physician informed.
--- NOTE | 2022-03-28 23:46 | NUR ---
URINE SENT TO LAB.
[2022-03-28 23:53] LABS: APPEARANCE,URINE CLEAR (CLEAR); BILIRUBIN,URINE NEGATIVE (NEGATIVE); BLOOD, URINE 1+ (NEGATIVE); COLOR,URINE YELLOW (YELLOW); LEUKOCYTE ESTERASE ,URINE 3+ (NEGATIVE); NITRITE, URINE NEGATIVE (NEGATIVE); UGLUCOSE NEGATIVE (NEGATIVE)
[2022-03-28 23:59] LABS: RBC,URINE 0-5 /HPF (0-5); WBC,URINE TOO MANY TO COUNT /HPF (0-5)
[2022-03-29] MEDS ORDERED: cefTRIAXone 1,000 MG VIAL ONE (00:01)
[2022-03-29] MEDS ORDERED: GENTAMICIN 80 MG/2 ML VIAL ONE ×2 (00:29→00:30)
--- NOTE | 2022-03-29 01:48 | NUR ---
Patient appears to be resting comfortably in bed- semi fowlers, and eyes closed. Respirations even and unlabored. Attached to potline monitor, safety measures are in place, and will continue to monitor patient.
--- NOTE | 2022-03-29 03:18 | NUR ---
transfer consent received verbal consent through telephone with Beatriz HYDE. Notified family.
--- NOTE | 2022-03-29 03:30 | NUR ---
TRACH CARE COMPLETED Sx CINTRON, TRACH TIE, OMNI-FLEX, DRAIN SPONGE/TRACH PAD, AND PORTEX 7 INNER CANNULA HAS BEEN EXCHANGED PT REMAINS ON T-PIECE W/ 2L BLEED TRACH IS SECURED AND PATENT WILL CONTINUE TO MONITOR
--- NOTE | 2022-03-29 03:42 | NUR ---
[facility] at bedside.
[2022-03-29 03:52] VITALS: BP 135/47
== END 2022-03-29 03:42 | disposition short-term general hospital (02) ==
LOC: MED 20:39
DX: A41.9 Sepsis, unspecified organism (principal); I95.9 Hypotension, unspecified; N39.0 Urinary tract infection, site not specified; Z88.1 Allergy status to other antibiotic agents; J44.9 Chronic obstructive pulmonary disease, unspecified; E11.9 Type 2 diabetes mellitus without complications; I10 Essential (primary) hypertension; N28.9 Disorder of kidney and ureter, unspecified; J96.10 Chronic respiratory failure, unspecified whether with hypoxia or hypercapnia; R13.10 Dysphagia, unspecified; Z20.822 Contact with and (suspected) exposure to COVID-19
CPT/HCPCS: 36415; 71045; 80053; 81001; 83605; 85025; 86886; 86900; 86901; 87040; 87086; 87426; 93005; 96361; 96365; 96366; 99285; J0696; J1580; J7030; Q0092

== ENCOUNTER 2022-05-02 02:22 | Inpatient (IN) | payer MEDICARE, MEDICAID ==
[2022-05-02] VITALS (14 sets, daily range): BP systolic 94–137; BP diastolic 28–74
[~2022-05-02] VITALS: Ht 170.2 cm; Wt 84.4 kg
[2022-05-02] MEDS ORDERED: NACL 0.9% 1,000 ML IV ONE ×2 (03:05→04:20)
[2022-05-02] MEDS ORDERED: PIPERACILLIN/TAZOBACTAM 3.375 GM in DEXTROSE 5% 50 ML IV ONE (03:20)
[2022-05-02] MEDS ORDERED: VANCOMYCIN 1,000 MG in DEXTROSE 5% 250 ML IV ONE (03:20)
[2022-05-02 03:31] LABS: BASOPHILS # (AUTO) 0.1 K/uL (0.00-0.22); BASOPHILS % (AUTO) 0.8 % (0.0-2.0); EOSINOPHILS # (AUTO) 0.6 K/uL (0-0.4); EOSINOPHILS % (AUTO) 5.2 % (0.0-4.0); LYMPHOCYTES # (AUTO) 1.1 K/uL (2.0-11.5); LYMPHOCYTES % (AUTO) 10.2 % (20.5-51.1); MEAN CORPUSCULAR HEMOGLOBIN 29 pg (27-31); MEAN CORPUSCULAR HGB CONC 32 g/dL (33-37); MONOCYTES # (AUTO) 0.3 K/uL (0.8-1.0); NEUTROPHILS # (AUTO) 8.5 K/uL (1.8-7.7); NEUTROPHILS % (AUTO) 80.8 % (42.2-75.2); PLATELET COUNT (AUTO) 72 K/uL (140-450); RED BLOOD CELL COUNT(AUTO) 2.13 MIL/uL (4.20-6.10); RED CELL DISTRIBUTION WIDTH 22.2 % (11.6-13.7); WHITE BLOOD COUNT (AUTO) 10.6 K/uL (4.8-10.8)
[2022-05-02 03:35] LABS: HEMATOCRIT 19.8 % (36-52); HEMOGLOBIN 6.3 g/dL (12.0-18.0)
[2022-05-02] MEDS ORDERED: PIPERACILLIN/TAZOBACTAM 3.375 GM VIAL IV ONE (03:38)
[2022-05-02 03:47] LABS: PROTHROMBIN TIME 11.1 secs (10.8-13.4)
[2022-05-02] MEDS ORDERED: SIMV40TA1 PO (03:49)
[2022-05-02] MEDS ORDERED: [UNRECOGNIZED DRUG - OTHER] (03:49)
[2022-05-02] MEDS ORDERED: NOVN SUBQ (03:49)
[2022-05-02 04:02] LABS: ALBUMIN 1.4 g/dL (3.4-5.0); ANION GAP 5.4 (8-16); ASPARTATE AMINOTRANSFERASE 47 U/L (15-37); CARBON DIOXIDE 34.5 mmol/L (21-32); CHLORIDE 116 mmol/L (98-107); CREATININE 1.1 mg/dL (0.6-1.3); GLUCOSE 108 mg/dL (74-106); SODIUM SERUM 153 mmol/L (136-145); TOTAL BILIRUBIN 0.4 mg/dL (0.0-1.0)
[2022-05-02 04:09] LABS: POTASSIUM 2.9 mmol/L (3.5-5.1); UREA NITROGEN, BLOOD 66 mg/dL (7-18)
[2022-05-02] MEDS ORDERED: KCL 20 MEQ/WATER INJ PREMIX 200 ML IV ONE (04:15)
[2022-05-02] MEDS ORDERED: POTASSIUM CHLORIDE 10 MEQ TABER PO ONE (04:15)
[2022-05-02] MEDS ORDERED: VANCOMYCIN 1,000 MG VIAL ONE (04:23)
[2022-05-02] MEDS ORDERED: ALBUTEROL SULFATE/IPRATROPIU 3 ML SOL IH PRN ×2 (04:50→08:45)
[2022-05-02 05:47] LABS: APPEARANCE,URINE CLOUDY (CLEAR); BILIRUBIN,URINE NEGATIVE (NEGATIVE); BLOOD, URINE 3+ (NEGATIVE); COLOR,URINE YELLOW (YELLOW); LEUKOCYTE ESTERASE ,URINE 3+ (NEGATIVE); NITRITE, URINE NEGATIVE (NEGATIVE); PH,URINE 6.5 (5.0-9.0); UGLUCOSE NEGATIVE (NEGATIVE)
[2022-05-02] MEDS ORDERED: NOREPINEPHRINE 8 MG in DEXTROSE 5% 250 ML IV PRN (06:05)
[2022-05-02 06:07] LABS: RBC,URINE 0-5 /HPF (0-5); WBC,URINE TOO MANY TO COUNT /HPF (0-5)
[2022-05-02] MEDS ORDERED: ONDANSETRON 4 MG/2 ML VIAL IM/IVP PRN (08:40)
[2022-05-02] MEDS ORDERED: guaiFENesin DM 200/20 MG-10 ML 10 ML UDC PO PRN (08:40)
[2022-05-02] MEDS ORDERED: ACETAMINOPHEN 325 MG TAB PO PRN (08:40)
[2022-05-02] MEDS ORDERED: DOCUSATE SODIUM 100 MG GELCAP PO PRN (08:40)
[2022-05-02] MEDS ORDERED: HYDROcodone/APAP 7.5/325 MG 1 TAB PO PRN (08:40)
[2022-05-02] MEDS ORDERED: POTASSIUM CHLORIDE 10 MEQ TABER PO PRN (08:40)
[2022-05-02] MEDS ORDERED: ZOLPIDEM 5 MG TAB PO PRN (08:40)
[2022-05-02] MEDS: NACL 0.9% 1,000 ML IV SCH ×2 (09:30→16:40)
[2022-05-02] MEDS: PANTOPRAZOLE 40 MG INJ VIAL IVP SCH (09:47)
[2022-05-02 09:57] LABS: FREE T4 (FREE THYROXINE) 1.06 ng/dL (0.76-1.46); MAGNESIUM 1.7 mg/dL (1.8-2.4); PHOSPHORUS 2.7 mg/dL (2.5-4.9); THYROID STIMULATING HORMONE 3.47 uIU/mL (0.34-3.74)
[2022-05-02 10:09] LABS: CHOL/HDL RATIO 2.5 (1-4.5)
[2022-05-02] MEDS ORDERED: MAG SULF 2000 MG/WATER PREMIX 50 ML IV PRN (10:55)
[2022-05-02] MEDS ORDERED: KCL 20 MEQ/WATER INJ PREMIX 200 ML IV PRN (10:55)
[2022-05-02] MEDS: PIPERACILLIN/TAZOBACTAM 3.375 GM in DEXTROSE 5% 50 ML IV SCH ×2 (12:14→18:00)
[2022-05-02 12:23] LABS: BASOPHILS % (AUTO) 0.5 % (0.0-2.0); EOSINOPHILS # (AUTO) 0.6 K/uL (0-0.4); EOSINOPHILS % (AUTO) 8.2 % (0.0-4.0); HEMATOCRIT 22.3 % (36-52); HEMOGLOBIN 7.2 g/dL (12.0-18.0); LYMPHOCYTES % (AUTO) 12.9 % (20.5-51.1); MEAN CORPUSCULAR HEMOGLOBIN 29 pg (27-31); MEAN CORPUSCULAR HGB CONC 32 g/dL (33-37); MEAN CORPUSCULAR VOLUME 90.5 fL (80-94); MONOCYTES # (AUTO) 0.3 K/uL (0.8-1.0); MONOCYTES % (AUTO) 4.5 % (1.7-9.3); NEUTROPHILS # (AUTO) 5.7 K/uL (1.8-7.7); NEUTROPHILS % (AUTO) 73.9 % (42.2-75.2); PLATELET COUNT (AUTO) 60 K/uL (140-450); RED BLOOD CELL COUNT(AUTO) 2.46 MIL/uL (4.20-6.10); RED CELL DISTRIBUTION WIDTH 19.9 % (11.6-13.7); WHITE BLOOD COUNT (AUTO) 7.8 K/uL (4.8-10.8)
[2022-05-02] MEDS: ALBUTEROL SULFATE/IPRATROPIU 3 ML SOL IH SCH ×2 (13:48→19:34)
[2022-05-03] VITALS (20 sets, daily range): BP systolic 117–148; BP diastolic 49–87
[2022-05-03] MEDS: PIPERACILLIN/TAZOBACTAM 3.375 GM in DEXTROSE 5% 50 ML IV SCH ×5 (00:11→23:55)
[2022-05-03 05:16] LABS: BASOPHILS % (AUTO) 0.4 % (0.0-2.0); EOSINOPHILS # (AUTO) 0.9 K/uL (0-0.4); HEMATOCRIT 22.1 % (36-52); HEMOGLOBIN 7.1 g/dL (12.0-18.0); LYMPHOCYTES # (AUTO) 0.6 K/uL (2.0-11.5); MEAN CORPUSCULAR HEMOGLOBIN 29 pg (27-31); MEAN CORPUSCULAR HGB CONC 32 g/dL (33-37); MEAN CORPUSCULAR VOLUME 90.9 fL (80-94); MONOCYTES # (AUTO) 0.2 K/uL (0.8-1.0); MONOCYTES % (AUTO) 3.4 % (1.7-9.3); NEUTROPHILS # (AUTO) 5.2 K/uL (1.8-7.7); NEUTROPHILS % (AUTO) 74.2 % (42.2-75.2); PLATELET COUNT (AUTO) 62 K/uL (140-450); RED BLOOD CELL COUNT(AUTO) 2.43 MIL/uL (4.20-6.10); RED CELL DISTRIBUTION WIDTH 19.8 % (11.6-13.7)
[2022-05-03 05:55] LABS: CARBON DIOXIDE 28.8 mmol/L (21-32); CREATININE 1.6 mg/dL (0.6-1.3); GLUCOSE 158 mg/dL (74-106)
[2022-05-03 06:03] LABS: UREA NITROGEN, BLOOD 68 mg/dL (7-18)
[2022-05-03 06:30] LABS: ANION GAP 12.3 (8-16); CHLORIDE 113 mmol/L (98-107); POTASSIUM 4.1 mmol/L (3.5-5.1); SODIUM SERUM 150 mmol/L (136-145)
[2022-05-03] MEDS: NACL 0.9% 1,000 ML IV SCH ×4 (07:15→23:55)
[2022-05-03] MEDS: ALBUTEROL SULFATE/IPRATROPIU 3 ML SOL IH SCH ×3 (07:55→19:48)
[2022-05-03] MEDS: PANTOPRAZOLE 40 MG INJ VIAL IVP SCH (08:09)
[2022-05-03 09:32] LABS: T4 (THYROXINE) 4.9 ug/dL (4.5-12.0)
[2022-05-03] MEDS ORDERED: HYDROCOLLOID DRESSING TP SCH (13:00)
[2022-05-03] MEDS ORDERED: INTERDRY CLOTH TP SCH (15:20)
[2022-05-03] MEDS ORDERED: VANCOMYCIN PER PHARMACY MC PRN (21:05)
[2022-05-03] MEDS ORDERED: VANCOMYCIN 1,000 MG VIAL ONE (22:00)
[2022-05-03] MEDS ORDERED: VANCOMYCIN 1GM/DEXT 5% PREMIX 200 ML IV SCH (22:00)
[2022-05-04] VITALS (20 sets, daily range): BP systolic 110–138; BP diastolic 44–93
[2022-05-04] MEDS: Z-GUARD PASTE TP SCH ×2 (01:00→13:05)
[2022-05-04 04:48] LABS: ANION GAP 9.7 (8-16); CARBON DIOXIDE 27.2 mmol/L (21-32); CHLORIDE 115 mmol/L (98-107); CREATININE 1.8 mg/dL (0.6-1.3); GLUCOSE 210 mg/dL (74-106); POTASSIUM 3.9 mmol/L (3.5-5.1); SODIUM SERUM 148 mmol/L (136-145); UREA NITROGEN, BLOOD 67 mg/dL (7-18)
[2022-05-04 05:10] LABS: BASOPHILS % (AUTO) 0.4 % (0.0-2.0); EOSINOPHILS # (AUTO) 0.7 K/uL (0-0.4); EOSINOPHILS % (AUTO) 14.6 % (0.0-4.0); LYMPHOCYTES # (AUTO) 0.5 K/uL (2.0-11.5); LYMPHOCYTES % (AUTO) 9.5 % (20.5-51.1); MEAN CORPUSCULAR HEMOGLOBIN 29 pg (27-31); MEAN CORPUSCULAR HGB CONC 32 g/dL (33-37); MEAN CORPUSCULAR VOLUME 92.5 fL (80-94); MONOCYTES # (AUTO) 0.2 K/uL (0.8-1.0); MONOCYTES % (AUTO) 4.9 % (1.7-9.3); NEUTROPHILS # (AUTO) 3.6 K/uL (1.8-7.7); NEUTROPHILS % (AUTO) 70.6 % (42.2-75.2); PLATELET COUNT (AUTO) 60 K/uL (140-450); RED BLOOD CELL COUNT(AUTO) 2.08 MIL/uL (4.20-6.10); RED CELL DISTRIBUTION WIDTH 20.6 % (11.6-13.7); WHITE BLOOD COUNT (AUTO) 5.1 K/uL (4.8-10.8)
[2022-05-04] MEDS: PIPERACILLIN/TAZOBACTAM 3.375 GM in DEXTROSE 5% 50 ML IV SCH ×3 (05:27→17:24)
[2022-05-04 06:02] LABS: HEMATOCRIT 19.2 % (36-52); HEMOGLOBIN 6.1 g/dL (12.0-18.0)
[2022-05-04] MEDS: ALBUTEROL SULFATE/IPRATROPIU 3 ML SOL IH SCH ×3 (06:52→19:13)
[2022-05-04] MEDS: PANTOPRAZOLE 40 MG INJ VIAL IVP SCH (08:09)
[2022-05-04] MEDS: NACL 0.9% 1,000 ML IV SCH ×2 (08:10→16:40)
[2022-05-04] MEDS ORDERED: SKINTEGRITY HYDROGEL TP SCH (13:00)
[2022-05-04 16:14] LABS: BASOPHILS % (AUTO) 0.4 % (0.0-2.0); EOSINOPHILS # (AUTO) 0.6 K/uL (0-0.4); EOSINOPHILS % (AUTO) 13.6 % (0.0-4.0); HEMOGLOBIN 7.1 g/dL (12.0-18.0); LYMPHOCYTES # (AUTO) 0.6 K/uL (2.0-11.5); LYMPHOCYTES % (AUTO) 11.8 % (20.5-51.1); MEAN CORPUSCULAR HEMOGLOBIN 30 pg (27-31); MEAN CORPUSCULAR HGB CONC 32 g/dL (33-37); MEAN CORPUSCULAR VOLUME 91.7 fL (80-94); MONOCYTES # (AUTO) 0.2 K/uL (0.8-1.0); MONOCYTES % (AUTO) 4.9 % (1.7-9.3); NEUTROPHILS # (AUTO) 3.3 K/uL (1.8-7.7); NEUTROPHILS % (AUTO) 69.3 % (42.2-75.2); PLATELET COUNT (AUTO) 61 K/uL (140-450); RED BLOOD CELL COUNT(AUTO) 2.39 MIL/uL (4.20-6.10); RED CELL DISTRIBUTION WIDTH 18.8 % (11.6-13.7); WHITE BLOOD COUNT (AUTO) 4.7 K/uL (4.8-10.8)
[2022-05-04] MEDS ORDERED: ZGUARD TP (20:41)
[2022-05-04] MEDS ORDERED: [UNRECOGNIZED DRUG - CODE] IV (20:41)
[2022-05-04] MEDS ORDERED: ACET-9531 PO (20:41)
[2022-05-04] MEDS ORDERED: ACET-1182 PO (20:41)
[2022-05-04] MEDS ORDERED: HYDGEL TP (20:41)
[2022-05-04] MEDS ORDERED: INTERDRY CLOTH TP (20:41)
[2022-05-04] MEDS ORDERED: Vancomycin Per Pharmacy MC (20:41)
[2022-05-04] MEDS ORDERED: PRO40I IVP (20:41)
[2022-05-04] MEDS ORDERED: DOCU-299 PO (20:41)
[2022-05-04] MEDS ORDERED: ZOS3.375PM IV (20:41)
[2022-05-04] MEDS ORDERED: ZOLP5TAB1 PO (20:41)
[2022-05-04] MEDS ORDERED: DEXT5SYR3 PO (20:41)
[2022-05-04] MEDS ORDERED: HYDROCOLLOID DRESSING TP (20:41)
[2022-05-04] MEDS ORDERED: ONDA2SOL45 IM/IVP (20:41)
[2022-05-04] MEDS ORDERED: ALBU3SOL83 IH ×2 (20:41)
== END 2022-05-04 23:25 | disposition short-term general hospital (02) | DRG 871 ==
LOC: MED 02:22 → MIC 04:53
PROVIDERS: ADMIT Family Medicine; ATTEND Family Medicine
PROC: 5A1945Z Respiratory Ventilation, 24-96 Consecutive Hours (ICD-10-PCS; principal; 2022-05-02)
PROC: 30233N1 Transfusion of Nonautologous Red Blood Cells into Peripheral Vein, Percutaneous Approach (ICD-10-PCS; 2022-05-02)
PROC: 02HV33Z Insertion of Infusion Device into Superior Vena Cava, Percutaneous Approach (ICD-10-PCS; 2022-05-02)
PROC: B548ZZA Ultrasonography of Superior Vena Cava, Guidance (ICD-10-PCS; 2022-05-02)
DX: A41.9 Sepsis, unspecified organism (principal); L89.154 Pressure ulcer of sacral region, stage 4; E43 Unspecified severe protein-calorie malnutrition; J18.9 Pneumonia, unspecified organism; R65.21 Severe sepsis with septic shock; J96.21 Acute and chronic respiratory failure with hypoxia; J96.22 Acute and chronic respiratory failure with hypercapnia; N39.0 Urinary tract infection, site not specified; N17.9 Acute kidney failure, unspecified; J90 Pleural effusion, not elsewhere classified; J44.0 Chronic obstructive pulmonary disease with (acute) lower respiratory infection; E78.5 Hyperlipidemia, unspecified; I25.10 Atherosclerotic heart disease of native coronary artery without angina pectoris; K21.9 Gastro-esophageal reflux disease without esophagitis; R13.10 Dysphagia, unspecified; F03.90 Unspecified dementia, unspecified severity, without behavioral disturbance, psychotic disturbance, mood disturbance, and anxiety; D64.9 Anemia, unspecified; Z20.822 Contact with and (suspected) exposure to COVID-19; I12.9 Hypertensive chronic kidney disease with stage 1 through stage 4 chronic kidney disease, or unspecified chronic kidney disease; E11.22 Type 2 diabetes mellitus with diabetic chronic kidney disease; N18.9 Chronic kidney disease, unspecified; Z93.1 Gastrostomy status; Z90.49 Acquired absence of other specified parts of digestive tract; Z88.1 Allergy status to other antibiotic agents; Z87.81 Personal history of (healed) traumatic fracture; Z93.0 Tracheostomy status; Z88.8 Allergy status to other drugs, medicaments and biological substances; Z79.899 Other long term (current) drug therapy
CPT/HCPCS: 36415; 36430; 36600; 71045; 80048; 80053; 81001; 82150; 82550; 82553; 82803; 83036; 83605; 83690; 83735; 83874; 83880; 84100; 84436; 84439; 84443; 84479; 84484; 85025; 85610; 85730; 86886; 86900; 86901; 86920; 87040; 87070; 87081; 87086; 87205; 93005; 94002; 94003; 94640; 96361; 96365; 96367; 99291; A4649; A6248; C9113; J2543; J3370; J3475; J3480; J7030; J7060; P9016; Q0092